=== PATIENT | male | born 1955 | race Caucasian/White ===

== ENCOUNTER 2020-03-02 19:42 | Inpatient (IN) | payer OTHER ==
[2020-03-02] MEDS ORDERED: SODIUM CHLORIDE 1,000 ML IV STA ×2 (19:49→21:28)
[2020-03-02] MEDS ORDERED: FAMOTIDINE 20 MG/50 ML IVPB 20 MG/50 ML MG IVPB ONE ×2 (19:49→21:51)
[2020-03-02] MEDS ORDERED: ACETAMINOPHEN 1000 MG/100 ML VIAL (NON FORMULARY) IVPB ONE (19:49)
--- NOTE | 2020-03-02 19:49 | PDOC ---
Rapid Medical Evaluation Time Seen by Provider: 03/02/20 19:44 Medical Evaluation: Allergies Allergy/AdvReac Type Severity Reaction Status Date / Time No Known Drug Allergies Allergy Verified 08/14/13 13:14 03/02/20 19:44 PT presents for evaluation of RUQ pain for one week. Pt states he didn't take his BP meds today Exam: Hypertensive to 190/100, RUQ tenderness, (+) ackerman's sign Orders: labs, IV insert, defer imaging to provider Pt to proceed to the ER for evaluation Discharge Disposition - Diagnosis Abdominal pain Qualifiers: Abdominal location: right upper quadrant Qualified Code(s): R10.11 - Right upper quadrant pain - Referrals - Patient Instructions - Post Discharge Activity
[2020-03-02] MEDS ORDERED: MAG HYDROX/AL HYDROX/SIMETH 30 ML UNIT-DOSE CUP PO ONE (20:45)
[2020-03-02 20:52] LABS: EOS % 0.6 % (0-4.5); HEMATOCRIT 35.7 % (35.4-49); HEMOGLOBIN 12.3 GM/dL (11.7-16.9); MCH 27.4 pg (25.7-33.7); MCHC 34.5 g/dl (32.0-35.9); MEAN CELL VOLUME 79.4 fl (80-96); MEAN PLT VOLUME 7.9 fl (7.5-11.1); MONO % 7.9 % (3.8-10.2); NEUT % 47.5 % (42.8-82.8); PLATELET COUNT 256 K/MM3 (134-434); RBC 4.49 M/mm3 (4.00-5.60); RDW 14.7 % (11.9-15.9); WHITE BLOOD COUNT 6.6 K/mm3 (4.0-10.0)
--- NOTE | 2020-03-02 20:53 | PDOC ---
History of Present Illness - General Chief Complaint: Pain Stated Complaint: RUQ PAIN Time Seen by Provider: 03/02/20 19:44 - History of Present Illness Initial Comments: 03/02/20 20:56 64 M with HTN, DM presented to the ED for RUQ pain. Pain happened 1 month ago, but getting worse for the past 3 weeks. Today, he came into the ED to get evaluated due to the burning pain. Pain located on the RUQ near the ribcase. Describing it as a burning pain sensation, 8/10 in pain score, not worsening with movement or after food. Denies N/V/fever/chill/chest pain/gallstone hx/shingle vaccine/trauma/falling. PMHX: as in HPI PSHX: see below Meds: BP med Allergies: none Tob: none Etoh: none Rec drugs:none PCP: Amrik ROSSI GENERAL/CONSTITUTIONAL: No fever or chills. No weakness. HEAD, EYES, EARS, NOSE AND THROAT: No change in vision. No ear pain or discharge. No sore throat. CARDIOVASCULAR: No chest pain or shortness of breath RESPIRATORY: No cough, wheezing, or hemoptysis. GASTROINTESTINAL: No nausea, vomiting, diarrhea or constipation. GENITOURINARY: No dysuria, frequency, or change in urination. MUSCULOSKELETAL: RUQ pain. +right rib pain. No neck or back pain. SKIN: No rash NEUROLOGIC: No headache, vertigo, loss of consciousness, or change in strength/sensation. ENDOCRINE: No increased thirst. No abnormal weight change HEMATOLOGIC/LYMPHATIC: No anemia, easy bleeding, or history of blood clots. ALLERGIC/IMMUNOLOGIC: No hives or skin allergy. PE HTN 180/90s. GENERAL: Awake, alert, and fully oriented, in no acute distress HEAD: No signs of trauma, normocephalic, atraumatic EYES: PERRLA, EOMI, sclera anicteric, conjunctiva clear ENT: Auricles normal inspection, hearing grossly normal, nares patent, oropharynx clear without exudates. Moist mucosa NECK: Normal ROM, supple, no lymphadenopathy, JVD, or masses LUNGS: No distress, speaks full sentences, clear to auscultation bilaterally HEART: Regular rate and rhythm, normal S1 and S2, no murmurs, rubs or gallops, peripheral pulses normal and equal bilaterally. ABDOMEN: Soft, RUQ tenderness, +ackerman sign, neg cva tenderness bilat, norm oactive bowel sounds. No guarding, no rebound. No masses. EXTREMITIES : Normal inspection, Normal range of motion, no edema. No clubbing or cyanosis. NEUROLOGICAL: Cranial nerves II through XII grossly intact. Normal speech, normal gait, no focal sensorimotor deficits SKIN: Warm, Dry, normal turgor, no rashes or lesions noted. No rashes noticed on the rib in dermatome distribution. 03/02/20 22:27 03/02/20 23:49 Past History - Medical History Allergies/Adverse Reactions: Allergies Allergy/AdvReac Type Severity Reaction Status Date / Time No Known Drug Allergies Allergy Verified 03/02/20 19:48 Home Medications: Ambulatory Orders Atenolol [Tenormin -] 50 mg PO BID #0 tablet 08/16/13 Lisinopril [Prinivil -] 40 mg PO DAILY #0 tablet 08/16/13 Amlodipine Besylate 5 mg PO DAILY 03/02/20 Losartan Potassium 25 mg PO DAILY 03/02/20 Rosuvastatin Calcium [Crestor] 20 mg PO 03/02/20 Sitagliptin Phosphate [Januvia] 100 mg PO DAILY 03/02/20 metFORMIN HCL [Metformin ER Gastric] 1,000 mg PO BID 03/02/20 COPD: No 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 Audit-10AR): Negative In the last yr the pt used illegal drug/Rx for NonMed reason: No Score: Yes response is considered Positive: 0 Screen Result (Positive result requires Nsg. DAST-10): Negative *Physical Exam - Vital Signs Last Vital Signs Temp Pulse Resp BP Pulse Ox 98.4 F 82 18 189/97 H 98 03/02/20 19:44 03/02/20 19:44 03/02/20 19:44 03/02/20 19:44 03/02/20 19:44 ED Treatment Course - LABORATORY CBC & Chemistry Diagram: 03/02/20 20:15 03/02/20 20:15 - ADDITIONAL ORDERS Additional order review: 03/02/20 20:15 RBC 4.49 MCV 79.4 L MCHC 34.5 RDW 14.7 MPV 7.9 Neutrophils % 47.5 D Lymphocytes % 43.0 H D Monocytes % 7.9 Eosinophils % 0.6 D Basophils % 1.0 Medical Decision Making - Medical Decision Making 03/02/20 21:01 64 M with HTN, DM, presented to the ED with weeks of RUQ pain. ddx: cholelithiasis, cholecystitis, kidney stone, rib fx, duodenal ulcer, shingles. Lab work, UA/UC Chest xray + abdomen/pelvic CT scan with contrast. POCUS gallstones is negative for swelling and stones. Blood work revealed high Lactate 2.3 . Trop 0.09. EKG was done. Flip Twaves 2,3 avF , didn't change much from preveious EKG. sinus rhtym. QTc 419 Not concerning. UA showed elevated WBC, high protein , high leukoesterase. 03/02/20 23:44 BP med :Losartan 25, and Amlopdiin 5 mg. Other med: Offimiv, famnotidine, 2 L of fluid. Repeated Troponin and EKG due to elevated Trop. 03/02/20 23:46 CT scan of the abdomen /pelvic with contrast showed renal cortex cyst 3.5 cm, mild mesenteric Lymph notes, incidental finding which required ortho follow up . 03/02/20 23:54 03/03/20 00:[address] Vides for elevated lactate, and trop . Waiting for the trop and EKG. 03/03/20 00:25 Discharge - Discharge Information Problems reviewed: Yes Clinical Impression/Diagnosis: Elevated troponin, Elevated serum lactate dehydrogenase, Diabetes Abdominal pain Qualifiers: Abdominal location: right upper quadrant Qualified Code(s): R10.11 - Right up per quadrant pain Condition: Good - Admission Yes - Follow up/Referral - Patient Discharge Instructions - Post Discharge Activity
[2020-03-02 21:04] LABS: INR 1.07 (0.83-1.09); PROTHROMBIN TIME (PATIENT) 12.6 SEC (9.7-13.0)
[2020-03-02 21:20] LABS: ALBUMIN 3.6 g/dl (3.4-5.0); BILIRUBIN,TOTAL 0.8 mg/dL (0.2-1); BLOOD UREA NITROGEN 22.9 mg/dL (7-18); CALCIUM 8.9 mg/dL (8.5-10.1); CREATININE 1.5 mg/dL (0.55-1.3); POTASSIUM 3.9 mmol/L (3.5-5.1); TOT PROT 6.9 g/dl (6.4-8.2)
[2020-03-02] MEDS ORDERED: ACETAMINOPHEN INJECTION 100 ML IVPB ONE (21:51)
[2020-03-02] MEDS ORDERED: MAG HYDROX/AL HYDROX/SIMETH 30 ML UNIT-DOSE CUP ONE (21:51)
--- NOTE | 2020-03-02 21:56 | PDOC ---
Attending Attestation - Resident Resident Name: Fernando Hinson - ED Attending Attestation I have performed the following: I have examined & evaluated the patient, The case was reviewed & discussed with the resident, I agree w/resident's findings & plan, Exceptions are as noted - HPI HPI: 03/02/20 21:47 64 yo m h/o htn here with c/o 1 mo of right upper quadrant pain. intermitent, no identifying exacerbation or moderating factors. last few days constant. no association with food. describes as a burning quality. no cp no sob. no rash. feels like the skin is extra sensitive. no trauma. no n/v no f/c no other complaints. - Physicial Exam PE: 03/02/20 21:49 awake alert lungs clear bilat right lower rib, upper quad exquisitely tender to palp, pos guarding. no cva tenderenss. otherwise abd soft nt nd ext wwp. no edema. no calf tenderness. alert oriented x 3. - Medical Decision Making 03/02/20 21:49 64 yo male ruq, right lower rib pain. ttp. differential cholelithiasis, choleycystitis, duod ulcer, pancreatitis, rib injury , pulm infection, plan ekg labs lipase trop cxr eval rib,s nad lungs. focused ED us ruq r/o gb pathology. focused ED us RUQ normal, no stones, no wall thickening, normal cbd neg ackerman's. impression: normal gallbladder. pt labs noted for elevated glucose 350, mild lactic acid 2.3. ct a/p ordered. ekg unchanged from prior with TWI II, III, AVF. NSR 71 bpm trop mildly positive 0.9 03/03/20 00:13 ct with mestenteric lymph node enlargement, noted coronary calcification. pt trop elevated, hgb A1C 10.5. undiagnosed diabetes. given asa 325. will admit to telemetry. Heart Score/ECG Review #1 General ECG Interpretation: Sinus Rhythm, Normal Rate (71), Normal Intervals, No acute ischemic changes (TWI II, III, AVF.) Compared to previous ECG there are: No significant change Discharge - Discharge Information Problems reviewed: Yes Clinical Impression/Diagnosis: Elevated troponin, Elevated serum lactate dehydrogenase, Diabetes Abdominal pain Qualifiers: Abdominal location: right upper quadrant Qualified Code(s): R10.11 - Right upper quadrant pain Condition: Good - Follow up/Referral Referrals: Td Rowley MD [Primary Care Provider] - - Patient Discharge Instructions - Post Discharge Activity
[2020-03-02 22:05] LABS: EPI CELLS 27 /uL (0-25.1); HYALINE CASTS 2 /uL (0-3.1); URINE APPEARANCE CLEAR; URINE BACTERIA 80 /uL (0-1359); URINE BILIRUBIN NEGATIVE (NEGATIVE); URINE COLOR YELLOW; URINE GLUCOSE (UA) 3+ (NEGATIVE); URINE KETONE NEGATIVE (NEGATIVE); URINE LEUK ESTERASE NEGATIVE (NEGATIVE); URINE NITRITE NEGATIVE (NEGATIVE); URINE PROTEIN 2+ (NEGATIVE); URINE RBC 6 /uL (0-23.9); URINE WBC 33 /uL (0-25.8)
[2020-03-02 23:14] LABS: VENOUS BASE EXCESS 0.6 mmol/L (-2-2); VENOUS O2 SATURATION 90.8 % (70-80); VENOUS PCO2 40.8 mmHg (38-52); VENOUS PH 7.41 (7.310-7.410)
[2020-03-02] MEDS ORDERED: amLODIPine BESYLATE 5 MG TABLET (FP) PO ONE (23:43)
[2020-03-02] MEDS ORDERED: LOSARTAN POTASSIUM 25 MG TABLET PO ONE (23:43)
[2020-03-03] MEDS ORDERED: ASPIRIN 81 MG CHEWABLE TABLETS PO ONE (00:13)
--- NOTE | 2020-03-03 00:14 | HP ---
CHIEF COMPLAINT: RUQ burning PCP: Dr. COLBERT ([facility]) HISTORY OF PRESENT ILLNESS: Mr. Tineo is a 64M w a pmhx of HTN, HLD, and type 2 Diabetes reporting to the emergency department for an evaluation of his right sided burning tenderness. The patient reports that the first incident of this burning pain occured one month ago and it has gotten progressively worse as time went on. The patient describes the pain to originate at the R 10th rib mid axilary line and abruptly ends at the midline. The patient rates the pain 8/10, does not get better with any intervention and cannot find an exacerbating trigger. Patient placed on gabapentin for 2 weeks w no relief and has not been able to see his PCP for medi cation management. The patient notes that even his clothing irritates his skin. He has never experienced this in the past. He endorses a history of chicken pox as a child and has never taken the shingles vax. The patient notes receiving back surgery but unsure of the location on the spine for a herniated disk 6 years ago. In the ED the patient received his home medications for antihypertension and an ekg that had inverted t waves in II, III, and avF otherwise unremarkable. Recent Travel: Denies OCCUPATION: works for the [employer] PAST MEDICAL HISTORY: as above PAST SURGICAL HISTORY: Herniated disk intervention, aspiration of his left knee Social History: Smoking: no Alcohol: no Drugs: no Allergies No Known Drug Allergies Allergy (Verified 03/02/20 19:48) HOME MEDICATIONS: Home Medications Medication Instructions Recorded Atenolol [Tenormin -] 50 mg PO BID #0 tablet 08/16/13 Lisinopril [Prinivil -] 40 mg PO DAILY #0 tablet 08/16/13 Amlodipine Besylate 5 mg PO DAILY 03/02/20 Losartan Potassium 25 mg PO DAILY 03/02/20 Rosuvastatin Calcium [Crestor] 20 mg PO 03/02/20 Sitagliptin Phosphate [Januvia] 100 mg PO DAILY 03/02/20 metFORMIN HCL [Metformin ER 1,000 mg PO BID 03/02/20 Gastric] REVIEW OF SYSTEMS CONSTITUTIONAL: Absent: fever, chills, diaphoresis, generalized weakness, malaise, loss of appetite, weight change HEENT: Absent: rhinorrhea, nasal congestion, throat pain, throat swelling, difficulty swallowing, mouth swelling, ear pain, eye pain, visual changes CARDIOVASCULAR: Absent: chest pain, syncope, palpitations, irregular heart rate, lightheadedness, peripheral edema RESPIRATORY: Absent: cough, shortness of breath, dyspnea with exertion, orthopnea, wheezing, stridor, hemoptysis GASTROINTESTINAL:T7 dermatome pattern for burning pain originating at the mid ax ilary line and ending at midline SKIN: Darkening of the right flank compared to the L Absent: rash, itching, pallor ENDOCRINE: Absent: unexplained weight gain, unexplained weight loss, heat intolerance, cold intolerance PHYSICAL EXAMINATION Vital Signs - 24 hr 03/02/20 03/02/20 19:44 23:54 Temperature 98.4 F Pulse Rate 82 Pulse Rate [ 63 Left] Respiratory 18 18 Rate Blood Pressure 189/97 H Blood Pressure 177/91 H [Right Arm] O2 Sat by Pulse 98 97 Oximetry (%) GENERAL: Awake, alert, and fully oriented, in no acute distress. HEAD: Normal with no signs of trauma. LUNGS: Breath sounds equal, clear to auscultation bilaterally. No wheezes, and no crackles. No accessory muscle use. HEART: Regular rate and rhythm, normal S1 and S2 without murmur, rub or gallop. ABDOMEN: T7 dermatome pattern for burning pain originating at the mid axilary line and ending at midline LOWER EXTREMITIES: 2+ pulses, warm, well-perfused. No calf tenderness. No peripheral edema. SKIN: darkening of the right flank in comparison to the L Laboratory Results - last 24 hr 03/02/20 03/02/20 03/02/20 19:49 20:15 20:15 WBC 6.6 RBC 4.49 Hgb 12.3 Hct 35.7 MCV 79.4 L MCH 27.4 MCHC 34.5 RDW 14.7 Plt Count 256 D MPV 7.9 Absolute Neuts (auto) 3.1 Neutrophils % 47.5 D Lymphocytes % 43.0 H D Monocytes % 7.9 Eosinophils % 0.6 D Basophils % 1.0 Nucleated RBC % 0 PT with INR 12.60 INR 1.07 VBG pH POC VBG pCO2 POC VBG pO2 VBG HCO3 VBG O2 Sat (González) VBG Base Excess Sodium Potassium Chloride Carbon Dioxide Anion Gap BUN Creatinine Est GFR (CKD-EPI)AfAm Est GFR (CKD-EPI)NonAf Random Glucose Hemoglobin A1c % Lactic Acid 2.3 H* Calcium Total Bilirubin AST ALT Alkaline Phosphatase Creatine Kinase Creatine Kinase Index CK-MB (CK-2) Troponin I Total Protein Albumin Lipase Urine Color Urine Appearance Urine pH Ur Specific Weldon Urine Protein Urine Glucose (UA) Urine Ketones Urine Blood Urine Nitrite Urine Bilirubin Urine Urobilinogen Ur Leukocyte Esterase Urine WBC (Auto) Urine RBC (Auto) Urine Casts (Auto) U Epithel Cells (Auto) Urine Bacteria (Auto) 03/02/20 03/02/20 03/02/20 20:15 20:15 21:40 WBC RBC Hgb Hct MCV MCH MCHC RDW Plt Count MPV Absolute Neuts (auto) Neutrophils % Lymphocytes % Monocytes % Eosinophils % Basophils % Nucleated RBC % PT with INR INR VBG pH POC VBG pCO2 POC VBG pO2 VBG HCO3 VBG O2 Sat (González) VBG Base Excess Sodium 135 L Potassium 3.9 Chloride 97 L Carbon Dioxide 29 Anion Gap 8 BUN 22.9 H Creatinine 1.5 H Est GFR (CKD-EPI)AfAm 56.61 Est GFR (CKD-EPI)NonAf 48.84 Random Glucose 380 H Hemoglobin A1c % 10.8 H Lactic Acid Calcium 8.9 Total Bilirubin 0.8 AST 38 H ALT 31 Alkaline Phosphatase 81 Creatine Kinase 213 Creatine Kinase Index 1.2 CK-MB (CK-2) 2.7 Troponin I 0.09 H Total Protein 6.9 Albumin 3.6 Lipase 157 Urine Color Yellow Urine Appearance Clear Urine pH 5.0 Ur Specific Weldon 1.032 Urine Protein 2+ H Urine Glucose (UA) 3+ H Urine Ketones Negative Urine Blood Negative Urine Nitrite Negative Urine Bilirubin Negative Urine Urobilinogen 1.0 Ur Leukocyte Esterase Negative Urine WBC (Auto) 33 Urine RBC (Auto) 6 Urine Casts (Auto) 2 U Epithel Cells (Auto) 27 Urine Bacteria (Auto) 80 03/02/20 23:04 WBC RBC Hgb Hct MCV MCH MCHC RDW Plt Count MPV Absolute Neuts (auto) Neutrophils % Lymphocytes % Monocytes % Eosinophils % Basophils % Nucleated RBC % PT with INR INR VBG pH 7.410 POC VBG pCO2 40.8 POC VBG pO2 58.9 H VBG HCO3 25.3 VBG O2 Sat (González) 90.8 H VBG Base Excess 0.6 Sodium Potassium Chloride Carbon Dioxide Anion Gap BUN Creatinine Est GFR (CKD-EPI)AfAm Est GFR (CKD-EPI)NonAf Random Glucose Hemoglobin A1c % Lactic Acid Calcium Total Bilirubin AST ALT Alkaline Phosphatase Creatine Kinase Creatine Kinase Index CK-MB (CK-2) Troponin I Total Protein Albumin Lipase Urine Color Urine Appearance Urine pH Ur Specific Weldon Urine Protein Urine Glucose (UA) Urine Ketones Urine Blood Urine Nitrite Urine Bilirubin Urine Urobilinogen Ur Leukocyte Esterase Urine WBC (Auto) Urine RBC (Auto) Urine Casts (Auto) U Epithel Cells (Auto) Urine Bacteria (Auto) ASSESSMENT/PLAN: Mr. Tineo is a 64M w a pmhx of HTN, HLD, and type 2 Diabetes reporting to the emergency department for an evaluation of his right sided burning tenderness. #RUQ pain - Neuropathic vs anterior cutaneous nerve entrapment vs Diabetic neuropathic pain - Patient has had history of herniated disk repair unsure of location - patient on gabapentin - 2 weeks w no relief - patient responded well to tylenol - consultation for neurology - Dr. Salas - Anterior cutaneous nerve entrapment syndrome is the most common and frequently missed type of abdominal wall pain. 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 - corticosteroids injections to the area used in dx and tx - overall response rate 70-99% #Troponemia - Repeat troponin - Demand ischemia vs rule out asc - patient reports chronically elevated BP #Lactic acidosis likely secondary to metformin use - likely due to metformin home medication - Gentle IVF - Consult nephro #Diabetes type II - ISS - A1C 10.8 - consult endo - holding metformin in the setting of jakub and lactic acidosis - proteinuria - benefit from going back on ARB whenever JAKUB resolves - needs to see podiatry and optho outpatient follow up - recheck BMP for hypokalemia prior to administering insulin #jakub vs jakub on ckd - 2013 Cr was 0.9 - now 1.8 - need to monitor Cr to find baseline - will follow BMP #HTN - hold losartan in the setting of JAKUB - hydralazine in the interim for better blood pressure control - atenolol - amlodipine #HLD - continue home rosuvostatin #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 - New Patient This patient is new to me today: Yes Date on this admission: 03/03/20 - Critical Care Critical Care patient: No ATTENDING PHYSICIAN STATEMENT I saw and evaluated the patient. I reviewed the resident's note and discussed the case with the resident. I agree with the resident's findings and plan as documented. SUBJECTIVE: OBJECTIVE: ASSESSMENT AND PLAN:
--- NOTE | 2020-03-03 00:15 | PN ---
Teaching Attending Note Name of Resident: Fabrice Nelson ATTENDING PHYSICIAN STATEMENT I saw and evaluated the patient. I reviewed the resident's note and discussed the case with the resident. I agree with the resident's findings and plan as documented. SUBJECTIVE: Patient is a 64 year old man with a PMH of HTN, Shingles in childhood, Thoracic herniated disc surgery and NIDDM who presents to the ER for RUQ abdominal pain. Pain happened 1 month ago, but getting worse for the past 3 weeks. Today, he came into the ER to get evaluated due to the burning pain. Pain located on the RUQ near the rib cage. Describing it as a burning pain sensation, 8/10 in pain score, not worsening with movement or after food. Says it hurts even when his sh irt rubs against the skin. Patient denies chest pain, shortness of breath, headache, palpitations, dizziness, fever, chills, nausea, vomiting, diarrhea, constipation, dysuria, frequency, urgency, melena, hematochezia or hematuria. Denies alcohol, tobacco or illicit drug use. No sick contacts or recent travels. Family history of DM in mother, HTN in mother. OBJECTIVE: Alert Vital Signs Period Temp Pulse Resp BP Sys/Lindo Pulse Ox Last 24 Hr 98.4 F 63-82 18-18 177-189/91-97 97-98 HEENT: No Jaundice, eye redness or discharge, PERRLA, EOMI. Normocephalic, atraumatic. External ears are normal and hearing is grossly intact. No nasal discharge. Neck: Supple, nontender. No palpable adenopathy or thyromegaly. No JVD Chest: Good effort. Clear to auscultation and percussion. Heart: Regular. No S3, rub or murmur Abdomen: Not distended, soft, nontender and no HSM. No rebound or guarding. Normal bowel sounds. Ext: Peripheral pulses intact. No leg edema. Skin: Warm and dry. No petechiae, rash or ecchymosis. Neuro: Alert. Oriented x3. CN 2-12 grossly intact. Sensation grossly intact in all four extremities and DTR are symmetric. Psych: Appropriate mood and affect. Good insight. Home Medications Medication Instructions Recorded Atenolol [Tenormin -] 50 mg PO BID #0 tablet 08/16/13 Lisinopril [Prinivil -] 40 mg PO DAILY #0 tablet 08/16/13 Amlodipine Besylate 5 mg PO DAILY 03/02/20 Losartan Potassium 25 mg PO DAILY 03/02/20 Rosuvastatin Calcium [Crestor] 20 mg PO 03/02/20 Sitagliptin Phosphate [Januvia] 100 mg PO DAILY 03/02/20 metFORMIN HCL [Metformin ER 1,000 mg PO BID 03/02/20 Gastric] Abnormal Lab Results 03/02/20 03/02/20 03/02/20 19:49 20:15 20:15 MCV 79.4 L Lymphocytes % 43.0 H D POC VBG pO2 VBG O2 Sat (González) Sodium 135 L Chloride 97 L BUN 22.9 H Creatinine 1.5 H Random Glucose 380 H Hemoglobin A1c % Lactic Acid 2.3 H* AST 38 H Troponin I 0.09 H Urine Protein Urine Glucose (UA) 03/02/20 03/02/20 03/02/20 20:15 21:40 23:04 MCV Lymphocytes % POC VBG pO2 58.9 H VBG O2 Sat (González) 90.8 H Sodium Chloride BUN Creatinine Random Glucose Hemoglobin A1c % 10.8 H Lactic Acid AST Troponin I Urine Protein 2+ H Urine Glucose (UA) 3+ H Current Medications Generic Name Dose Route Start Last Admin Trade Name Freq PRN Reason Stop Dose Admin Amlodipine Besylate 5 mg 03/03/20 10:00 Norvasc - PO DAILY [facility] Atenolol 50 mg 03/03/20 10:00 Tenormin - PO BID [facility] Heparin Sodium (Porcine) 5,000 unit 03/03/20 06:00 Heparin - SQ TID [facility] Sodium Chloride 1,000 mls @ 75 mls/hr 03/03/20 03:00 Normal Saline - IV ASDIR [facility] Insulin Aspart 1 vial 03/03/20 07:00 Novolog Vial Sliding Scale - SQ ACHS [facility] Protocol ASSESSMENT AND PLAN: 1. Abdominal pain/Uncontrolled DM/Troponin elevation - Pain has a dermatomal distribution and may be neuropathic due to nerve entrapment. Has risk factors for ACS. Troponin elevation may be due to decreased clearance. Will treat with topical agents for neuropathy and consult Neurology. EKG shows NSR at 71/minute and QTc 419, T wave inversion in II, III, aVF with no significant acute ischemic ST changes. Not significantly changed compared to prior EKG. Initial troponin is 0.09. No acute abnormality on CXR. CT scan of abdomen/pelvis with IV contrast shows hepatic steatosis, right hip degenerative joint disease and possible chronic left sacroiliitis. Viral testing for COVID-19 ordered and patient placed on airborne, droplet and contact isolation. ER staff prescribed Tylenol, Mylanta, Pepcid, Aspirin 324 mg, Amlodipine, Losartan and IV NS (2 liters) for the patient. Will admit to telemetry, trend troponin, repeat EKG, get ECHO, fasting lipids, trend lactic acid, give IV KCL and then SQ insulin to correct hyperglycemia and continue with IV 1/2 NS. Consult Cardiology. Will hold the home diabetes drugs and implement sliding scale insulin regimen. Provide comprehensive diabetes care with patient teaching and counseling about the importance of adherence to prescribed diabetes regimen, euglycemia, eye care and foot care. Consult endocrine - ptient needs better outpatient diabetes Will continue comprehensive care for all of patients comorbid conditions. 2. CKD with superimposed JAKUB Has proteinuria - ?diabetic nephropathy. JAKUB likely due to dehydration from osmotic diuresis. Will get kidney sonogram, hydrate with 1/2NS, monitor urine output and consult Nephrology. Avoid nephrotoxic agents such as NSAIDS, aminoglycosides, contrast dyes and certain Alternative medicine products. 3. Obesity Counseled on the risks associated with obesity. Will provide patient all the necessary assistance, counseling and positive reinforcement to facilitate weight loss. Consult paste maker. 4. Uncontrolled hypertension Will need to confirm outpatient antihypertensive drugs with PCP and Pharmacy. Not on a diuretic and is on an ACEI and small dose of ARB. Hold ACEI and ARB, continue Amlodipine and Atenolol and use Hydralazine for now to improve BP. Subsequently, will revise regimen to ensure [id number] excellent BP control. Patient counseled on the injurious effects of uncontrolled hypertension. Nonpharmacologic measures to control hypertension like weight loss, salt restriction and exercise stressed. Importance of adherence to treatment regimen and attainment of normotension emphasized. 5. DVT prophylaxis - Heparin 5000u sq tid. 6. Advance directives - Full code
--- OUTSIDE RECORDS SUMMARY | 2020-03-03 00:19 | XMS ---
:1955 Author Organization [facility] Care Team Providers Name Role Phone MD Timoteo Aldana Unavailable Unavailable Katya, MD Ricardo Unavailable Unavailable MD Katya H Unavailable Unavailable MD Katya H Unavailable Unavailable MD Katya H Unavailable Unavailable MD Katya H Unavailable Unavailable Katya, H Unavailable Unavailable Katya, H Unavailable Unavailable Katya, H Unavailable Unavailable Katya, H Unavailable Unavailable Katya, H Unavailable Unavailable Re-disclosure Warning The records that you are about to access may contain information from federally- assisted alcohol or drug abuse programs. If such information is present, then the following federally mandated warning applies: This information has been disclosed to you from records protected by federal confidentiality rules (42 CFR part 2). The federal rules prohibit you from making any further disclosure of this information unless further disclosure is expressly permitted by the written consent of the person to whom it pertains or as otherwise permitted by 42 CFR part 2. A general authorization for the release of medical or other information is NOT sufficient for this purpose. The Federal rules restrict any use of the information to criminally investigate or prosecute any alcohol or drug abuse patient.The records that you are about to access may contain highly sensitive health information, the redisclosure of which is protected by Article 27-F of the [facility] Public Health law. If you continue you may haveaccess to information: Regarding HIV / AIDS; Provided by facilities licensed or operated by the [facility] Office of Mental Health; or Provided by the [facility] Office for People With Developmental Disabilities. If such information is present, then the following [facility] mandated warning applies: This information has been disclosed to you from confidential records which are protected by state law. State law prohibits you from making any further disclosure of this information without the specific written consent of the person to whom it pertains, or as otherwise permitted by law. Any unauthorized further disclosure in violation of state law may result in a fine or retirement sentence or both. A general authorization for the release of medical or other information is NOT sufficient authorization for further disclosure. Encounters Encounter Providers Location Date Indications Data Source(s ) Outpatient Attender: MD [facility] 09/30/2018 n40.1 ID Wilbert Mahmood 07:39:18 AM Jaime Sherwood: MD BLAN[facility] 09/30/2018 Presley: 11:59:59 PM Timoteo Sherwood: MD Timoteo Sherwood: MD Timoteo Sherwood: MD Timoteo Sherwood: MD Timoteo Sherwood: MD Timoteo Faustin: MD Timoteo Aldana n40.1 P Attender: MD Mahmood [facility] 2018 07:52:45 n40 .1 ID Isabella Sherwood: [facility] Timoteo Sherwood: [facility] MD Timoteo Sherwood: MD Timoteo Sherwood: MD Timoteo Sherwood: MD Timoteo Sherwood: MD Timoteo Sherwood: MD Timoteo Faustin: MD Timoteo Aldana n40.1 P Attender: MD Timoteo [facility] 09/25/2018 10:27:36 n40 .1 [facility] Timoteo Sherwood: [facility] MD Timoteo Sherwood: MD Timoteo Sherwood: MD Timoteo Sherwood: MD Timoteo Sherwood: MD Timoteo Sherwood: MD Timoteo Faustin: MD Timoteo Aldana n40.1 Insurance Providers Payer name Policy type / Policy ID Covered Covered libertarian's Policy Plan Coverage type libertarian ID relationship to Self Information self [employer] PPO [id number] SP [id number] 4 [employer] COM [id number] Results ID Date Data Source [id number] 10/17/2019 12:00:00 AM EDT [facility] Name Value Range Interpretation Code Description Data Julieth rce(s) Supporting Document(s ) 2019-nCoV [facility] RNA XXX SHAMIKA+probe- Imp This lab was ordered by [facility] and reported by [employer]. ID Date Data Source [id number] 09/30/2018 10:32:15 AM EDT [facility] [id number] [facility] Name Value Range Interpretation Description Data Source(s ) Supporting Code Document(s ) RADRPT <table border="1" [facility] ethan width="95%"><[facility] up><[facility] width="25%"></col>< col width="25%"></col>< col width="25%"></col>< col width="25%"></col>< /colgroup><tbody><t r><td>Exam Date Time</td><td>Proced ure</td><td>Perform ing Provider</td><td>St atus</td></tr><tr>< td>09/30/18 10:32 AM</td><td>US Renal</td><td>RODERICK T RDMS, DONATA; </td><td>Auth (Verified)</td></tr ></tbody></table><p aragraph>Notes:</pa ragraph><paragraph> (US Renal) Reason For Exam: n40.1</paragraph><p aragraph><content>R eport</content><br/ ><content ID="[id number]">EXAMINATION: Ultrasound renal

HIST ORY: Benign prostatic hypertrophy with outflow obstruction

TECHNIQUE: Real-time sonography of the retroperitoneum was performed.
<br/ >COMPARISON: Ultrasound pelvis same date

FINDI NGS:

The right kidney measures 12.7 cm in craniocaudad dimension, with a
cyst at the upper pole measuring up to 3.7 cm.

The left kidney measures 11.7 cm in craniocaudad dimension, with a
cyst noted in the upper pole measuring 2.7 cm and another in the mid
kidney measuring 1.0 cm

Renal echotexture is within normal limits. Incidental increased
echot exture of the liver suggesting underlying steatosis.

The abdominal aorta is normal in caliber. The common iliac origins are
not well seen due to overlying bowel gas. The IVC is unremarkable.

IMPRESSIO N:
Bilateral renal cysts. Kidneys within normal limits in echotexture. No
evidence of hydronephrosis.<br/ >
Hepatic steatosis. </content>
<con tent> Final

Dict ated: 09/30/2018 11:45 am CONSUELO LIN MD

Signed (Electronic Signature): 09/30/2018 11:45 am
Signed by: CONSUELO LIN MD
Trans cribed by: Technologist: BROOKE </content></paragra ph> ID Date Data Source [id number] 09/30/2018 10:31:49 AM EDT [facility] [id number] [facility] Name Value Range Interpretation Code Description Data Julieth rce(s) Supporting Document(s ) RADRPT <table [facility] border="1" [facility] [place] width="95%"><col Hospital Cent er group><col width="25%"></co l><col width="25%"></co l><col width="25%"></co l><col width="25%"></co l></colgroup><tb thiago><tr><td>Exam Date Time</td><td>Pro cedure</td><td>P erforming Provider</td><td >Status</td></tr ><tr><td>09/30/18 10:32 AM</td><td>US Pelvic Complete</td><td >ROSANNA RDMS, DONATA; </td><td>Auth (Verified)</td>< /tr></tbody></ta ble><paragraph>N otes:</paragraph ><paragraph>(US Pelvic Complete) Reason For Exam: n40.1</paragraph ><paragraph><con tent>Report</con tent>
<anila nt ID="[id number]">Examinati on: Ultrasound pelvic complete

HISTORY: 63-year-old with benign prostatic hypertrophy and outflow
obst ruction, nocturia

Sonographic evaluation of the bladder and prostate are performed
<b r/>COMPARISON: Ultrasound renal same date

Th e bladder is smooth-walled with a volume of 113 cc prevoid and a 22
cc residual. Bilateral ureteral jets are identified.

Prostatic volume is 36 cc. There is a prominent nodular contour of the
prostate upon the trigone.

IMPRESSION:
Small post void residual. Nodular appearing prostate, volumes as
described . </content>
< content> Final

D ictated: 09/30/2018 11:44 am CONSUELO LIN MD
<b r/>Signed (Electronic Signature): 09/30/2018 11:44 am
Signed by: CONSUELO LIN MD
Tr anscribed by: Technologist: BROOKE </content></para graph> Procedure
[2020-03-03] MEDS ORDERED: ASPIRIN COATED 81 MG TABLET.EC ONE (00:23)
[2020-03-03] MEDS ORDERED: amLODIPine BESYLATE 5 MG TABLET (FP) ONE (00:24)
[2020-03-03] MEDS ORDERED: LOSARTAN POTASSIUM 50 MG TABLET ONE (00:24)
[2020-03-03] MEDS ORDERED: hydrALAZINE HCL 25 MG TABLET (FP) PO ONE ×2 (03:02→07:45)
[2020-03-03] MEDS ORDERED: ACETAMINOPHEN 1000 MG/100 ML VIAL (NON FORMULARY) IVPB ONE (03:07)
[2020-03-03 05:32] VITALS: BMI 30.2
[2020-03-03] MEDS ORDERED: PNEUMOC 13-VAL CONJ-DIP CRM/PF 0.5 ML DISP.SYRIN IM ONE (05:32)
[2020-03-03 07:16] LABS: BASO % 0.5 % (0-2.0); EOS % 1.3 % (0-4.5); HEMATOCRIT 35.7 % (35.4-49); HEMOGLOBIN 12.4 GM/dL (11.7-16.9); LYMPH % 48.4 % (8-40); MCH 27.6 pg (25.7-33.7); MCHC 34.7 g/dl (32.0-35.9); MEAN CELL VOLUME 79.5 fl (80-96); MEAN PLT VOLUME 7.6 fl (7.5-11.1); MONO % 8.1 % (3.8-10.2); NEUT % 41.7 % (42.8-82.8); PLATELET COUNT 236 K/MM3 (134-434); RBC 4.49 M/mm3 (4.00-5.60); RDW 15.1 % (11.9-15.9); WHITE BLOOD COUNT 5.8 K/mm3 (4.0-10.0)
[2020-03-03 07:20] LABS: POTASSIUM 3.5 mmol/L (3.5-5.1)
[2020-03-03] MEDS: HEPARIN NA (PORCINE) 5,000 UNITS/ML 1ML VIAL SQ SCH ×3 (07:20→21:12)
[2020-03-03] MEDS: SODIUM CHLORIDE 1,000 ML IV SCH (07:20)
[2020-03-03] MEDS: INSULIN SLIDING SCALE (NOVOLOG) 1 VIAL SQ SCH ×4 (07:23→21:18)
[2020-03-03 07:32] LABS: ALBUMIN 3.6 g/dl (3.4-5.0); BLOOD UREA NITROGEN 16.1 mg/dL (7-18); CALCIUM 8.6 mg/dL (8.5-10.1); CREATININE 1.1 mg/dL (0.55-1.3); MAGNESIUM 1.6 mg/dL (1.8-2.4); PHOSPHOROUS 2.9 mg/dL (2.5-4.9); TOT PROT 6.6 g/dl (6.4-8.2)
[2020-03-03] MEDS: ATENOLOL 50 MG TABLET (FP) PO SCH ×3 (08:57→21:13)
[2020-03-03] MEDS: amLODIPine BESYLATE 5 MG TABLET (FP) PO SCH ×2 (08:58→09:01)
--- NOTE | 2020-03-03 10:18 | EKG ---
Test Reason : Blood Pressure : / mmHG Vent. Rate : 071 BPM Atrial Rate : 071 BPM P-R Int : 168 ms QRS Dur : 090 ms QT Int : 386 ms P-R-T Axes : 048 003 -27 degrees QTc Int : 419 ms NORMAL SINUS RHYTHM NORMAL ECG WHEN COMPARED WITH ECG OF 07-AUG-2013 10:35, NO SIGNIFICANT CHANGE WAS FOUND Confirmed by MD Kumar Edward ([id number]) on 03/03/2020 10:17:49 AM Referred By: Confirmed By:Bharathi Kumar MD
--- NOTE | 2020-03-03 12:55 | EKG ---
Test Reason : Blood Pressure : / mmHG Vent. Rate : 054 BPM Atrial Rate : 054 BPM P-R Int : 184 ms QRS Dur : 098 ms QT Int : 422 ms P-R-T Axes : 021 003 -39 degrees QTc Int : 400 ms SINUS BRADYCARDIA WITH SINUS ARRHYTHMIA OTHERWISE NORMAL ECG WHEN COMPARED WITH ECG OF 02-MAR-2020 21:35, NO SIGNIFICANT CHANGE WAS FOUND Confirmed by MD GENO, KENY ([id number]) on 03/03/2020 12:55:09 PM Referred By: Bishnu LUNA Confirmed By:KENY LORA MD
--- NOTE | 2020-03-03 13:00 | PN ---
Teaching Attending Note Name of Resident: Scott Garces ATTENDING PHYSICIAN STATEMENT I saw and evaluated the patient. I reviewed the resident's note and discussed the case with the resident. I agree with the resident's findings and plan as documented. SUBJECTIVE: Seen and examined at bedside. Patient reports pain is burning in the right uppe r quadrant of his abdomen and is very sensitive to light touch. Patient also noted to have uptrending troponin, A1c of 10.8. Creatinine and lactic acid have improved. Cardiology to bensulted OBJECTIVE Last Vital Signs Temp Pulse Resp BP Pulse Ox 98.0 F 68 18 164/98 100 03/03/20 10:00 03/03/20 11:28 03/03/20 10:00 03/03/20 11:28 03/03/20 10:00 PE: Per resident note Labs/Imaging: reviewed ASSESSMENT/PLAN 61-year-old male with a history of hypertension, hyperlipidemia, type 2 diabetes presented with several weeks of burning right upper quadrant pain. Found to have JAKUB, elevated troponin, elevated lactic acid. #Right upper quadrant pain Appears to be neuropathic in quality. 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
[2020-03-03] MEDS ORDERED: LOSARTAN POTASSIUM 50 MG TABLET PO ONE (13:45)
--- NOTE | 2020-03-03 14:17 | CON.CARD ---
Consult Consult Specialty:: cardiology Reason for Consultation:: cardiac arrhythmia; elevated TNi - History of Present Illness Chief Complaint: Pt A&OX3; asymptomatic except ongoing burning mild-moderate pain along lower right ribcage History of Present Illness: Mr. Tineo is a 64 yr old white man with HTN, DM (diagnosed 2016), obesity, who presented to the ED for RUQ pain. Pain happened 1 month ago, but getting worse for the past 3 weeks. Today, he came into the ED to get evaluated due to the burning pain. Pain located on the RUQ near the ribcage. Describing it as a burning pain sensation, 8/10 in pain score, not worsening with movement or after food. Denies N/V/fever/chill/chest pain/gallstone hx/shingle vaccine/trauma/falling. Called because pt was noted to be in a wide-complex arrhythmia. Family hx; father had Mi in his 50s; in his 60s Mother: DM; in her 70s. Both parents smoked; pt was exposed to 2nd hand smoke growing up. Denies alcohol. 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 Denies leg swelling. - History Source History Provided By: Patient, Medical Record Limitations to Obtaining History: No Limitations - Past Medical History Cardio/Vascular: Yes: HTN - Alcohol/Substance Use Hx Alcohol Use: No - Smoking History Smoking history: Never smoked Have you smoked in the past 12 months: No Home Medications - Allergies Allergies/Adverse Reactions: Allergies Allergy/AdvReac Type Severity Reaction Status Date / Time No Known Drug Allergies Allergy Verified 03/02/20 19:48 - Home Medications Home Medications: Ambulatory Orders Atenolol [Tenormin -] 50 mg PO BID #0 tablet 08/16/13 Lisinopril [Prinivil -] 40 mg PO DAILY #0 tablet 08/16/13 Amlodipine Besylate 5 mg PO DAILY 03/02/20 Losartan Potassium 25 mg PO DAILY 03/02/20 Rosuvastatin Calcium [Crestor] 20 mg PO 03/02/20 Sitagliptin Phosphate [Januvia] 100 mg PO DAILY 03/02/20 metFORMIN HCL [Metformin ER Gastric] 1,000 mg PO BID 03/02/20 Amlodipine Besylate 1 tab PO DAILY 03/03/20 Gabapentin 2 cap PO DAILY 03/03/20 Rosuvastatin Calcium [Crestor] 40 cap PO DAILY 03/03/20 Family Medical History Family History: Denies Review of Systems - Review of Systems Constitutional: reports: No Symptoms Eyes: reports: No Symptoms HENT: reports: No Symptoms Neck: reports: No Symptoms Cardiovascular: reports: No Symptoms Gastrointestinal: reports: No Symptoms Genitourinary: reports: No Symptoms Breasts: reports: No Symptoms Reported Musculoskeletal: reports: Other (right rib pain) Integumentary: reports: Other (see above). denies: Rash Neurological: reports: No Symptoms Endocrine: reports: No Symptoms Hematology/Lymphatic: reports: No Symptoms Psychiatric: reports: Anxiety - Risk Factors Known Risk Factors: Yes: Age, Diabetes Mellitus, Family History, Gender, Hypercholesterolemia, Hypertension, Smoking (2nd-hand smoke (remote: while a child)) Vital Signs: Vital Signs Temperature 98.0 F 03/03/20 10:00 Pulse Rate 65 03/03/20 13:08 Respiratory Rate 18 03/03/20 10:00 Blood Pressure 159/82 03/03/20 13:08 O2 Sat by Pulse Oximetry (%) 100 03/03/20 10:00 Constitutional: Yes: Calm, Obese Eyes: Yes: WNL HENT: Yes: WNL Neck: No: WNL Gastrointestinal: Yes: WNL Renal/: No: Anuria Cardiovascular: Yes: Regular Rate and Rhythm JVD: No Carotid Bruit: No PMI: Non-Displaced Heart Sounds: Yes: S1, S2, S4 Murmur: Yes: Systolic Murmur Musculoskeletal: Yes: Other (burning pain right lower rib cage; increased with palpation) Edema: No Peripheral Pulses WNL: Yes Integumentary: Yes: WNL Neurological: Yes: WNL ...Motor Strength: WNL Psychiatric: Yes: WNL - Other Data Labs, Other Data: CBC, BMP 03/03/20 06:18 03/03/20 06:18 INR, PTT INR 1.07 (0.83-1.09) 03/02/20 20:15 Troponin, BNP 03/02/20 03/03/20 03/03/20 20:15 00:18 06:18 Troponin I 0.09 H 0.10 H 0.11 H 03/03/20 12:34 Troponin I 0.11 H Troponin, BNP 0903/03/20 03/03/20 20:15 00:18 06:18 Troponin I 0.09 H 0.10 H 0.11 H 03/03/20 12:34 Troponin I 0.11 H Abnormal Lab Results 03/05/20 03/05/20 06:31 06:31 MCV 79.6 L MPV 7.4 L Sodium 135 L BUN 19.3 H Random Glucose 223 H Magnesium 1.5 L Imaging - Results Chest X-ray: Image Reviewed EKG: Image Reviewed Other: Image Reviewed (telemetry: NSVT) Assessment/Plan NSVT mildly elevated TNi: multiple CAD risks; demand ischemic contributors, including arrhythmia, uncontrolled HTN, CHF. DM with high HGBA1c. HTN obesity family hx CAD exposure to 2nd hand cigarette smoke hypokalemia; hypomagnesemia. Hx coronary angiogram at [place] about [address]: On atenolol; increase dose, and modify other antihypertensive dosages as required for better BP control. Replete K and Mg; keep K 4.0-4.5, Mg 2.0-2.4, PO4 2.5-4.9. ECHO for LVEF, chamber sizes, valve status, wall motion and thicknesses. Statin, even if lipid panel is "normal". f/u prior cardiac workup; obtain coronary angiogram results (pt does not believe he had a stent placed). If not done recently, evaluation of coronary arteries (e.g., stress MIBI) will be needed. Nutrition consult would be of benefit.
[2020-03-03] MEDS ORDERED: POTASSIUM CHLORIDE TABS 20 MEQ TABLET.ER (FP) PO ONE (14:19)
[2020-03-03] MEDS ORDERED: MAGNESIUM OXIDE 400 MG TABLET (FP) PO ONE (14:20)
[2020-03-03] MEDS ORDERED: ATENOLOL 25 MG TABLET (FP) PO ONE (14:58)
--- NOTE | 2020-03-03 16:15 | CON.NEURO ---
Consult - Past Medical History Cardio/Vascular: Yes: HTN - Alcohol/Substance Use Hx Alcohol Use: No - Smoking History Smoking history: Never smoked Have you smoked in the past 12 months: No Home Medications - Allergies Allergies/Adverse Reactions: Allergies Allergy/AdvReac Type Severity Reaction Status Date / Time No Known Drug Allergies Allergy Verified 03/02/20 19:48 - Home Medications Home Medications: Ambulatory Orders Atenolol [Tenormin -] 50 mg PO BID #0 tablet 08/16/13 Lisinopril [Prinivil -] 40 mg PO DAILY #0 tablet 08/16/13 Amlodipine Besylate 5 mg PO DAILY 03/02/20 Losartan Potassium 25 mg PO DAILY 03/02/20 Rosuvastatin Calcium [Crestor] 20 mg PO 03/02/20 Sitagliptin Phosphate [Januvia] 100 mg PO DAILY 03/02/20 metFORMIN HCL [Metformin ER Gastric] 1,000 mg PO BID 03/02/20 Amlodipine Besylate 1 tab PO DAILY 03/03/20 Gabapentin 2 cap PO DAILY 03/03/20 Rosuvastatin Calcium [Crestor] 40 cap PO DAILY 03/03/20 Physical Exam-Neuro Vital Signs: Vital Signs Temperature 97.8 F 03/03/20 14:00 Pulse Rate 66 03/03/20 14:33 Respiratory Rate 18 03/03/20 10:00 Blood Pressure 155/94 03/03/20 14:33 O2 Sat by Pulse Oximetry (%) 99 03/03/20 14:00 Labs: CBC, BMP 03/03/20 06:18 03/03/20 06:18 INR, PTT INR 1.07 (0.83-1.09) 03/02/20 20:15 Assessment/Plan CC Right flank pain HPI 64 Year old male history of htn, hld, dm, has been having right flank burning sensation, along with burning of both feet. Patient has been diagnosed with DM and has poorly controlled dm. Patient is on gabapnetin and not helping his flank symptoms. Patient denies any abck pain, or rash or any history of rash. He denies any other focal neurological symptoms. Ct abdomen done was inconc lusive. He is being worked up for [place]. OCCUPATION: works for the [employer] PAST MEDICAL HISTORY: as above PAST SURGICAL HISTORY: Herniated disk intervention, aspiration of his left knee Social History: Smoking: no Alcohol: no Drugs: no Allergies No Known Drug Allergies Allergy (Verified 03/02/20 19:48) HOME MEDICATIONS: Home Medications Medication Instructions Recorded Atenolol [Tenormin -] 50 mg PO BID #0 tablet 08/16/13 Lisinopril [Prinivil -] 40 mg PO DAILY #0 tablet 08/16/13 Amlodipine Besylate 5 mg PO DAILY 03/02/20 Losartan Potassium 25 mg PO DAILY 03/02/20 Rosuvastatin Calcium [Crestor] 20 mg PO 03/02/20 Sitagliptin Phosphate [Januvia] 100 mg PO DAILY 03/02/20 metFORMIN HCL [Metformin ER 1,000 mg PO BID 03/02/20 Gastric] ROS,FHS,SH reviewed in chart NEUROLOGICAL EXAMINATION Alert oriented x 3, neck is supple vss , afebrile eomi, pupils reactive no face asymmetry there is sensory dysthesia in two dermitome between t9-t11 Assessment/plan 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
--- NOTE | 2020-03-03 18:19 | ECHO ---
Version: 1 Name: STONE BULL Exam: Adult Echocardiogram Study Date: 03/03/2020, 2:56 PM Age: 64 Years MMode/2D Measurements & Calculations IVSd: 1.18 cm LVIDd: 3.8 cm LVPWd: 1.53 cm LAV (MOD-bp): 87.0 ml LVOT diam: 2.46 cm Ao root diam: 3.6 cm LA dimension: 3.2 cm Doppler Measurements & Calculations MV E max james: 85.4 cm/sec Med E/e': 15.9 MV A max james: 117.5 cm/sec Med Peak E' James: 5.4 cm/sec MV E/A: 0.73 Lat E/e': 13.4 Lat Peak E' James: 6.4 cm/sec Ao max P.9 mmHg Ao V2 max: 157.1 cm/sec PI end-d james: 93.7 cm/sec TR max james: 191.4 cm/sec TR max P.7 mmHg Procedure A two-dimensional transthoracic echocardiogram with color flow and Doppler was performed. The patien t was in atrial fibrillation with controlled ventricular rate during the exam. Left Ventricle Left ventricular systolic function is mildly reduced. Ejection Fraction = 45%. E/A reversal consiste nt with but not diagnostic of poor LV compliance. Right Ventricle The right ventricle is normal in size and function. Atria Normal left and right atrial size and function. Mitral Valve There is moderate mitral annular calcification. There is no mitral regurgitation noted. Tricuspid Valve The tricuspid valve is normal. There is trace tricuspid regurgitation. There was insufficient TR det ected to calculate RV systolic pressure. Aortic Valve Fibrocalcific aortic valve without significant stenosis. The aortic valve is trileaflet. Trace aorti c regurgitation. Pulmonic Valve The pulmonic valve is not well seen, but is grossly normal. There is no pulmonic valvular regurgitat ion. Great Vessels The aortic root is normal size. Mildly dilated ascending aorta. Pericardium/Pleura There is no pericardial effusion. Summary Statements Left ventricular systolic function is mildly reduced. Ejection Fraction = 45%. E/A reversal consistent with but not diagnostic of poor LV compliance The right ventricle is normal in size and function. There is moderate mitral annular calcification. There is trace tricuspid regurgitation. Fibrocalcific aortic valve without significant stenosis. Trace aortic regurgitation. Mildly dilated ascending aorta. There is no pericardial effusion. MD Artur Carreno 03/03/2020, 6:18 PM Ordering Physician: Ankush Garza Referring Physician: ANDIE GARZA Performed By: Flora Magallon
--- NOTE | 2020-03-03 19:18 | PN ---
Physical Exam: SUBJECTIVE: Patient seen and examined at bedside. Endorses right sided superficial abdominal pain. Denies chest pain or shortness of breath. OBJECTIVE: Vital Signs Period Temp Pulse Resp BP Sys/Lindo Pulse Ox Last 24 Hr 97.6 F-98.4 F 52-94 18-20 155-198/76-104 97-100 GENERAL: NAD HEAD: Normal with no signs of trauma. EYES: EOMI Sclera Clear ENT:MMM NECK: Supple LUNGS: Clear b/l. No MRG S1S2 HEART: RRR No MRG S1S2 ABDOMEN: Soft, nontender, nondistender. BS+. No rashes or masses appreciated. EXTREMITIES: 2+ pulses, warm, well-perfused, no edema. NEUROLOGICAL: Cranial nerves II through XII grossly intact. PSYCH: Normal mood, normal affect. SKIN: Warm, dry, normal turgor, no rashes or lesions noted Laboratory Results - last 24 hr 03/02/20 03/02/20 03/02/20 19:49 20:15 20:15 WBC 6.6 RBC 4.49 Hgb 12.3 Hct 35.7 MCV 79.4 L MCH 27.4 MCHC 34.5 RDW 14.7 Plt Count 256 D MPV 7.9 Absolute Neuts (auto) 3.1 Neutrophils % 47.5 D Lymphocytes % 43.0 H D Monocytes % 7.9 Eosinophils % 0.6 D Basophils % 1.0 Nucleated RBC % 0 PT with INR 12.60 INR 1.07 VBG pH POC VBG pCO2 POC VBG pO2 VBG HCO3 VBG O2 Sat (González) VBG Base Excess Sodium Potassium Chloride Carbon Dioxide Anion Gap BUN Creatinine Est GFR (CKD-EPI)AfAm Est GFR (CKD-EPI)NonAf POC Glucometer Random Glucose Hemoglobin A1c % Lactic Acid 2.3 H* Calcium Phosphorus Magnesium Total Bilirubin AST ALT Alkaline Phosphatase Creatine Kinase Creatine Kinase Index CK-MB (CK-2) Troponin I Total Protein Albumin Triglycerides Cholesterol Total LDL Cholesterol HDL Cholesterol Lipase TSH Urine Color Urine Appearance Urine pH Ur Specific [place] Urine Protein Urine Glucose (UA) Urine Ketones Urine Blood Urine Nitrite Urine Bilirubin Urine Urobilinogen Ur Leukocyte Esterase Urine WBC (Auto) Urine RBC (Auto) Urine Casts (Auto) U Epithel Cells (Auto) Urine Bacteria (Auto) 03/02/20 03/02/20 03/02/20 20:15 20:15 21:40 WBC RBC Hgb Hct MCV MCH MCHC RDW Plt Count MPV Absolute Neuts (auto) Neutrophils % Lymphocytes % Monocytes % Eosinophils % Basophils % Nucleated RBC % PT with INR INR VBG pH POC VBG pCO2 POC VBG pO2 VBG HCO3 VBG O2 Sat (González) VBG Base Excess Sodium 135 L Potassium 3.9 Chloride 97 L Carbon Dioxide 29 Anion Gap 8 BUN 22.9 H Creatinine 1.5 H Est GFR (CKD-EPI)AfAm 56.61 Est GFR (CKD-EPI)NonAf 48.84 POC Glucometer Random Glucose 380 H Hemoglobin A1c % 10.8 H Lactic Acid Calcium 8.9 Phosphorus Magnesium Total Bilirubin 0.8 AST 38 H ALT 31 Alkaline Phosphatase 81 Creatine Kinase 213 Creatine Kinase Index 1.2 CK-MB (CK-2) 2.7 Troponin I 0.09 H Total Protein 6.9 Albumin 3.6 Triglycerides Cholesterol Total LDL Cholesterol HDL Cholesterol Lipase 157 TSH Urine Color Yellow Urine Appearance Clear Urine pH 5.0 Ur Specific [place] 1.032 Urine Protein 2+ H Urine Glucose (UA) 3+ H Urine Ketones Negative Urine Blood Negative Urine Nitrite Negative Urine Bilirubin Negative Urine Urobilinogen 1.0 Ur Leukocyte Esterase Negative Urine WBC (Auto) 33 Urine RBC (Auto) 6 Urine Casts (Auto) 2 U Epithel Cells (Auto) 27 Urine Bacteria (Auto) 80 03/02/20 03/03/20 03/03/20 23:04 00:18 00:18 WBC RBC Hgb Hct MCV MCH MCHC RDW Plt Count MPV Absolute Neuts (auto) Neutrophils % Lymphocytes % Monocytes % Eosinophils % Basophils % Nucleated RBC % PT with INR INR VBG pH 7.410 POC VBG pCO2 40.8 POC VBG pO2 58.9 H VBG HCO3 25.3 VBG O2 Sat (González) 90.8 H VBG Base Excess 0.6 Sodium Potassium Chloride Carbon Dioxide Anion Gap BUN Creatinine Est GFR (CKD-EPI)AfAm Est GFR (CKD-EPI)NonAf POC Glucometer Random Glucose Hemoglobin A1c % Lactic Acid 1.5 Calcium Phosphorus Magnesium Total Bilirubin AST ALT Alkaline Phosphatase Creatine Kinase Creatine Kinase Index CK-MB (CK-2) Troponin I 0.10 H Total Protein Albumin Triglycerides Cholesterol Total LDL Cholesterol HDL Cholesterol Lipase TSH Urine Color Urine Appearance Urine pH Ur Specific [place] Urine Protein Urine Glucose (UA) Urine Ketones Urine Blood Urine Nitrite Urine Bilirubin Urine Urobilinogen Ur Leukocyte Esterase Urine WBC (Auto) Urine RBC (Auto) Urine Casts (Auto) U Epithel Cells (Auto) Urine Bacteria (Auto) 03/03/20 03/03/20 03/03/20 06:18 06:18 07:21 WBC 5.8 RBC 4.49 Hgb 12.4 Hct 35.7 MCV 79.5 L MCH 27.6 MCHC 34.7 RDW 15.1 Plt Count 236 MPV 7.6 Absolute Neuts (auto) 2.4 Neutrophils % 41.7 L Lymphocytes % 48.4 H Monocytes % 8.1 Eosinophils % 1.3 D Basophils % 0.5 Nucleated RBC % 0 PT with INR INR VBG pH POC VBG pCO2 POC VBG pO2 VBG HCO3 VBG O2 Sat (González) VBG Base Excess Sodium 136 Potassium 3.5 Chloride 99 Carbon Dioxide 32 Anion Gap 5 L BUN 16.1 Creatinine 1.1 Est GFR (CKD-EPI)AfAm 82.37 Est GFR (CKD-EPI)NonAf 71.07 POC Glucometer 240 Random Glucose 245 H Hemoglobin A1c % Lactic Acid Calcium 8.6 Phosphorus 2.9 Magnesium 1.6 L Total Bilirubin 1.0 AST 19 ALT 31 Alkaline Phosphatase 79 Creatine Kinase Creatine Kinase Index CK-MB (CK-2) Troponin I 0.11 H Total Protein 6.6 Albumin 3.6 Triglycerides 356 H Cholesterol 200 Total LDL Cholesterol 112 H HDL Cholesterol 32 L Lipase TSH 1.84 Urine Color Urine Appearance Urine pH Ur Specific [place] Urine Protein Urine Glucose (UA) Urine Ketones Urine Blood Urine Nitrite Urine Bilirubin Urine Urobilinogen Ur Leukocyte Esterase Urine WBC (Auto) Urine RBC (Auto) Urine Casts (Auto) U Epithel Cells (Auto) Urine Bacteria (Auto) 03/03/20 03/03/20 03/03/20 11:33 12:34 17:24 WBC RBC Hgb Hct MCV MCH MCHC RDW Plt Count MPV Absolute Neuts (auto) Neutrophils % Lymphocytes % Monocytes % Eosinophils % Basophils % Nucleated RBC % PT with INR INR VBG pH POC VBG pCO2 POC VBG pO2 VBG HCO3 VBG O2 Sat (González) VBG Base Excess Sodium Potassium Chloride Carbon Dioxide Anion Gap BUN Creatinine Est GFR (CKD-EPI)AfAm Est GFR (CKD-EPI)NonAf POC Glucometer 204 236 Random Glucose Hemoglobin A1c % Lactic Acid Calcium Phosphorus Magnesium Total Bilirubin AST ALT Alkaline Phosphatase Creatine Kinase Creatine Kinase Index CK-MB (CK-2) Troponin I 0.11 H Total Protein Albumin Triglycerides Cholesterol Total LDL Cholesterol HDL Cholesterol Lipase TSH Urine Color Urine Appearance Urine pH Ur Specific [place] Urine Protein Urine Glucose (UA) Urine Ketones Urine Blood Urine Nitrite Urine Bilirubin Urine Urobilinogen Ur Leukocyte Esterase Urine WBC (Auto) Urine RBC (Auto) Urine Casts (Auto) U Epithel Cells (Auto) Urine Bacteria (Auto) Active Medications Generic Name Dose Route Start Last Admin Trade Name Ce PRN Reason Stop Dose Admin Amlodipine Besylate 5 mg 03/03/20 10:00 03/03/20 09:01 Norvasc - PO Not Given DAILY [facility] Atenolol 75 mg 03/03/20 14:57 Tenormin - PO BID [facility] Heparin Sodium (Porcine) 5,000 unit 03/03/20 06:00 03/03/20 13:16 Heparin - SQ 5,000 unit TID NADIA Administration Sodium Chloride 1,000 mls @ 75 mls/hr 03/03/20 03:00 03/03/20 07:20 Normal Saline - IV 03/04/20 16:19 75 mls/hr ASDIR NADIA Administration Influenza Virus Vaccine 60 mcg 03/03/20 05:32 Flulaval Quad 0023-9034 Syr IM 03/03/20 05:33 .ONCE ONE Insulin Aspart 1 vial 03/03/20 07:00 03/03/20 17:31 Novolog Vial Sliding Scale - SQ 4 units ACHS NADIA Administration Protocol Insulin Detemir 4 units 03/03/20 22:00 Levemir Vial SQ BID@0700,2200 [facility] Losartan Potassium 75 mg 03/04/20 10:00 Cozaar - PO DAILY [facility] Pneumococcal 13-Valent Conj Vacc 0.5 ml 03/03/20 05:32 Prevnar 13 Syringe - IM 03/03/20 05:33 .ONCE ONE ASSESSMENT/PLAN: Patient is a 64 year old man with a PMH of HTN, Shingles in childhood, Thoracic herniated disc surgery and NIDDM who presents to the ER for RUQ abdominal pain. Found to have an JAKUB, Tropenemia, and latic acidosis. #RUQ abdominal pain unclear etiology -Patient states his pain has been present for weeks. Cannot attribute pain to any inciting factors. -Pain located right side, very painful to superficial touch. Herpes Zoster on differential (has never had shingles vaccine). Also ddx includes anterior cutaneous nerve entrapment. -Neuro on board. Recommending topical capsaicin cream. Will defer Lidocaine patch in light of possible MT. -CTAP performed upon admission. No acute pathology. Enlarged mesentreric lymph nodes, sacroiliitis. Ortho consult and MRI suggested. #Tropenemia likely 2/2 demand -No EKG changes. May be 2/2 uncontrolled HTN. Troponin 0.11. c/t trend. Echocardiogram---> Mixed Diastolic/Systolic HD. Poor LV compliance/ poor LV relaxation. #Diabetes Mellitus -A1C 10.7. -Started in Insulin while admitted. Counseled on health ramifications of uncontrolled diabetes including but not limnited to stroke, heart disease, and lung disease. -Endo has been consulted. Recs appreciated #Acute Kidney Injury -Cr upon admission---> 1.5. Currently 1.1. C/t trend. May be 2/2 medication mismanagement, i.e patient endorsing he is taking both lisinopril and losartan #HTN -Lisinopril d/c'ed. -Losartan 75 daily, Atenolol, Hydralazine. #FEN NS@75cc Monitor Electrolytes Sodium Controlled/Diabetic #DVT ppx: HepSQTID #Dispo: Tele Visit type - Emergency Visit Emergency Visit: Yes ED Registration Date: 03/02/20 Care time: The patient presented to the Emergency Department on the above date and was hospitalized for further evaluation of their emergent condition. - New Patient This patient is new to me today: Yes Date on this admission: 03/03/20 - Critical Care Critical Care patient: No - Discharge Referral Referred to [facility] No ATTENDING PHYSICIAN STATEMENT I saw and evaluated the patient. I reviewed the resident's note and discussed the case with the resident. I agree with the resident's findings and plan as documented. SUBJECTIVE: OBJECTIVE: ASSESSMENT AND PLAN:
[2020-03-03] MEDS ORDERED: ACETAMINOPHEN 1000 MG/100 ML VIAL (NON FORMULARY) IVPB PRN (20:11)
[2020-03-03] MEDS ORDERED: INSULIN (LEVEMIR) 100 UNITS/ML UNITS SQ SCH (22:00)
--- NOTE | 2020-03-03 23:30 | CONSULT ---
Consult Consult Specialty:: Endocrine Referred by:: Piper Bronson Reason for Consultation:: DMT2 uncontrolled Neuropathy - History of Present Illness Chief Complaint: high sugar and chest wall pain History of Present Illness: 64 year old man with a PMH of T2DM,(on oral agents)Back pain sp Thoracic disc surgery,HTN, Shingles presented to the ER for RUQ abdominal pain. Pain happened 1 month ago, but getting worse for the past 3 weeks. States pain is burning and feels like a hot iron on chest difficulty taking a deep breath,no cough or fever nausea or vomiting.He admitts high sugars inpast and very compliant with diet. - Past Medical History Cardio/Vascular: Yes: HTN - Alcohol/Substance Use Hx Alcohol Use: No - Smoking History Smoking history: Never smoked Have you smoked in the past 12 months: No Home Medications - Allergies Allergies/Adverse Reactions: Allergies Allergy/AdvReac Type Severity Reaction Status Date / Time No Known Drug Allergies Allergy Verified 03/02/20 19:48 - Home Medications Home Medications: Ambulatory Orders Atenolol [Tenormin -] 50 mg PO BID #0 tablet 08/16/13 Lisinopril [Prinivil -] 40 mg PO DAILY #0 tablet 08/16/13 Amlodipine Besylate 5 mg PO DAILY 03/02/20 Losartan Potassium 25 mg PO DAILY 03/02/20 Rosuvastatin Calcium [Crestor] 20 mg PO 03/02/20 Sitagliptin Phosphate [Januvia] 100 mg PO DAILY 03/02/20 metFORMIN HCL [Metformin ER Gastric] 1,000 mg PO BID 03/02/20 Amlodipine Besylate 1 tab PO DAILY 03/03/20 Gabapentin 2 cap PO DAILY 03/03/20 Rosuvastatin Calcium [Crestor] 40 cap PO DAILY 03/03/20 Review of Systems - Review of Systems Constitutional: reports: Lethargy Eyes: reports: No Symptoms HENT: reports: No Symptoms Neck: reports: No Symptoms Cardiovascular: reports: Shortness of Breath Respiratory: reports: Exercise Intolerance, SOB Gastrointestinal: reports: No Symptoms Genitourinary: reports: No Symptoms Integumentary: reports: Eczema, Pruritis, Rash Neurological: reports: Numbness, Weakness Physical Exam Vital Signs: Vital Signs Temperature 97.8 F 03/03/20 22:00 Pulse Rate 62 03/03/20 22:00 Respiratory Rate 18 03/03/20 22:00 Blood Pressure 163/82 03/03/20 22:00 O2 Sat by Pulse Oximetry (%) 96 03/03/20 22:00 Labs: CBC, BMP 03/03/20 06:18 03/03/20 06:18 Problem List - Problems (1) Controlled diabetes mellitus with hyperglycemia Problems reviewed: Yes Code(s): E11.65 - TYPE 2 DIABETES MELLITUS WITH HYPERGLYCEMIA (2) Abdominal pain Problems reviewed: Yes Code(s): R10.9 - UNSPECIFIED ABDOMINAL PAIN Qualifiers: Abdominal location: right upper quadrant Qualified Code(s): R10.11 - Right upper quadrant pain (3) Elevated serum lactate dehydrogenase Code(s): R74.0 - NONSPEC ELEV OF LEVELS OF TRANSAMNS & LACTIC ACID DEHYDRGNSE (4) Elevated troponin Code(s): R79.89 - OTHER SPECIFIED ABNORMAL FINDINGS OF BLOOD CHEMISTRY Assessment/Plan Current Active Problems Uncontrolled DMt2,neuropathy hyperglycemia Abdominal pain (Acute) Elevated serum lactate dehydrogenase (Acute) Elevated troponin (Acute) Abnormal Lab Results 03/03/20 03/03/20 03/03/20 00:18 06:18 06:18 MCV 79.5 L Neutrophils % 41.7 L Lymphocytes % 48.4 H Anion Gap 5 L Random Glucose 245 H Magnesium 1.6 L Troponin I 0.10 H 0.11 H Triglycerides 356 H Total LDL Cholesterol 112 H HDL Cholesterol 32 L 03/03/20 03/03/20 12:34 21:20 MCV Neutrophils % Lymphocytes % Anion Gap Random Glucose Magnesium Troponin I 0.11 H 0.10 H Triglycerides Total LDL Cholesterol HDL Cholesterol Laboratory Results - last 24 hr 03/03/20 03/03/20 03/03/20 00:18 00:18 06:18 WBC RBC Hgb Hct MCV MCH MCHC RDW Plt Count MPV Absolute Neuts (auto) Neutrophils % Lymphocytes % Monocytes % Eosinophils % Basophils % Nucleated RBC % Sodium 136 Potassium 3.5 Chloride 99 Carbon Dioxide 32 Anion Gap 5 L BUN 16.1 Creatinine 1.1 Est GFR (CKD-EPI)AfAm 82.37 Est GFR (CKD-EPI)NonAf 71.07 POC Glucometer Random Glucose 245 H Lactic Acid 1.5 Calcium 8.6 Phosphorus 2.9 Magnesium 1.6 L Total Bilirubin 1.0 AST 19 ALT 31 Alkaline Phosphatase 79 Troponin I 0.10 H 0.11 H Total Protein 6.6 Albumin 3.6 Triglycerides 356 H Cholesterol 200 Total LDL Cholesterol 112 H HDL Cholesterol 32 L TSH 1.84 03/03/20 03/03/20 03/03/20 06:18 07:21 11:33 WBC 5.8 RBC 4.49 Hgb 12.4 Hct 35.7 MCV 79.5 L MCH 27.6 MCHC 34.7 RDW 15.1 Plt Count 236 MPV 7.6 Absolute Neuts (auto) 2.4 Neutrophils % 41.7 L Lymphocytes % 48.4 H Monocytes % 8.1 Eosinophils % 1.3 D Basophils % 0.5 Nucleated RBC % 0 Sodium Potassium Chloride Carbon Dioxide Anion Gap BUN Creatinine Est GFR (CKD-EPI)AfAm Est GFR (CKD-EPI)NonAf POC Glucometer 240 204 Random Glucose Lactic Acid Calcium Phosphorus Magnesium Total Bilirubin AST ALT Alkaline Phosphatase Troponin I Total Protein Albumin Triglycerides Cholesterol Total LDL Cholesterol HDL Cholesterol TSH 03/03/20 03/03/20 03/03/20 12:34 17:24 21:14 WBC RBC Hgb Hct MCV MCH MCHC RDW Plt Count MPV Absolute Neuts (auto) Neutrophils % Lymphocytes % Monocytes % Eosinophils % Basophils % Nucleated RBC % Sodium Potassium Chloride Carbon Dioxide Anion Gap BUN Creatinine Est GFR (CKD-EPI)AfAm Est GFR (CKD-EPI)NonAf POC Glucometer 236 266 Random Glucose Lactic Acid Calcium Phosphorus Magnesium Total Bilirubin AST ALT Alkaline Phosphatase Troponin I 0.11 H Total Protein Albumin Triglycerides Cholesterol Total LDL Cholesterol HDL Cholesterol TSH 03/03/20 21:20 WBC RBC Hgb Hct MCV MCH MCHC RDW Plt Count MPV Absolute Neuts (auto) Neutrophils % Lymphocytes % Monocytes % Eosinophils % Basophils % Nucleated RBC % Sodium Potassium Chloride Carbon Dioxide Anion Gap BUN Creatinine Est GFR (CKD-EPI)AfAm Est GFR (CKD-EPI)NonAf POC Glucometer Random Glucose Lactic Acid Calcium Phosphorus Magnesium Total Bilirubin AST ALT Alkaline Phosphatase Troponin I 0.10 H Total Protein Albumin Triglycerides Cholesterol Total LDL Cholesterol HDL Cholesterol TSH Plan: meal time insulin doses metformin 1000mg bid sitalglyptin 100mg day levemir 15 untis am levemir 10units hs
[2020-03-04] MEDS: SODIUM CHLORIDE 1,000 ML IV SCH (03:00)
[2020-03-04] MEDS: HEPARIN NA (PORCINE) 5,000 UNITS/ML 1ML VIAL SQ SCH ×3 (06:26→21:07)
[2020-03-04] MEDS: INSULIN SLIDING SCALE (NOVOLOG) 1 VIAL SQ SCH ×5 (07:06→21:10)
[2020-03-04] MEDS: INSULIN (LEVEMIR) 100 UNITS/ML UNITS SQ SCH ×2 (07:06→07:53)
--- NOTE | 2020-03-04 08:31 | PN ---
Progress Note (short form) - Note Progress Note: Cc Right flank pain x 2 weeks prior to coming hospital 64 Year old male history of htn, hld, dm, has been having right flank burning sensation, along with burning of both feet. Patient has been diagnosed with DM and has poorly controlled dm. Patient is on gabapnetin and not helping his flank symptoms. Patient denies any abck pain, or rash or any history of rash. He denies any other focal neurological symptoms. Ct abdomen done was inconclusive. He is being worked up for [place]. NEUROLOGICAL EXAMINATION Alert oriented x 3, neck is supple vss , afebrile eomi, pupils reactive no face asymmetry there is sensory dysthesia in two dermitome between t9-t11 Assessment/plan Intercostal neritis secondary to ? diaebtes vs post herpetic, ( no evidence of rash or history of rash) - gabapentin is not helping Stephanie-- diabetic control - capscacin cream is non formulary, - laboratory director to ok before lidocaine patch given cardiac condition - consider pain management for Intercoastal block, if pain persists Thanking you so much Isaiah Salas MD
[2020-03-04 09:01] LABS: HEMATOCRIT 39.1 % (35.4-49); HEMOGLOBIN 13.2 GM/dL (11.7-16.9); MCH 27.2 pg (25.7-33.7); MCHC 33.8 g/dl (32.0-35.9); MEAN CELL VOLUME 80.6 fl (80-96); MEAN PLT VOLUME 7.4 fl (7.5-11.1); PLATELET COUNT 255 K/MM3 (134-434); RBC 4.85 M/mm3 (4.00-5.60); RDW 14.9 % (11.9-15.9); WHITE BLOOD COUNT 5.3 K/mm3 (4.0-10.0)
[2020-03-04] MEDS: ATENOLOL 50 MG TABLET (FP) PO SCH (09:24)
[2020-03-04 09:26] LABS: ALBUMIN 3.6 g/dl (3.4-5.0); BILIRUBIN,TOTAL 0.7 mg/dL (0.2-1); BLOOD UREA NITROGEN 15.5 mg/dL (7-18); CALCIUM 9.3 mg/dL (8.5-10.1); CREATININE 1.2 mg/dL (0.55-1.3); MAGNESIUM 1.7 mg/dL (1.8-2.4); POTASSIUM 4.2 mmol/L (3.5-5.1); TOT PROT 6.7 g/dl (6.4-8.2)
[2020-03-04] MEDS: amLODIPine BESYLATE 10 MG TABLET (FP) PO SCH (09:26)
[2020-03-04] MEDS: LOSARTAN POTASSIUM 50 MG TABLET PO SCH (09:26)
[2020-03-04] MEDS ORDERED: FLU VACCINE (FLULAVAL) PF 60 MCG/0.5 ML SYRINGE 2020-2021 IM ONE (12:00)
[2020-03-04] MEDS ORDERED: PNEUMOCOCCAL 23 VACCINE 0.5 ML VIAL IM ONE (12:00)
--- NOTE | 2020-03-04 12:14 | PN ---
Progress Note, Physician History of Present Illness: Mr. Tineo is a 64 yr old white man with HTN, DM (diagnosed 2016), obesity, who presented to the ED for RUQ pain. Pain happened 1 month ago, but getting worse for the past 3 weeks. Today, he came into the ED to get evaluated due to the burning pain. Pain located on the RUQ near the ribcage. Describing it as a burning pain sensation, 8/10 in pain score, not worsening with movement or after food. Denies N/V/fever/chill/chest pain/gallstone hx/shingle vaccine/trauma/falling. Called because pt was noted to be in a wide-complex arrhythmia. Family hx; father had Mi in his 50s; in his 60s Mother: DM; in her 70s. Both parents smoked; pt was exposed to 2nd hand smoke growing up. Denies alcohol. 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 Denies leg swelling. - Current Medication List Current Medications: Active Medications Acetaminophen (Ofirmev Injection -) 1,000 mg IVPB Q6H PRN PRN Reason: PAIN LEVEL 6-10 Stop: 03/04/20 20:11 Last Admin: 03/03/20 20:40 Dose: 1,000 mg Documented by: Amlodipine Besylate (Norvasc -) 10 mg PO DAILY [facility] Last Admin: 03/04/20 09:26 Dose: 10 mg Documented by: Atenolol (Tenormin -) 75 mg PO BID [facility] Last Admin: 03/04/20 09:24 Dose: 75 mg Documented by: Heparin Sodium (Porcine) (Heparin -) 5,000 unit SQ TID [facility] Last Admin: 03/04/20 06:26 Dose: 5,000 unit Documented by: Insulin Aspart (Novolog Vial Sliding Scale -) 1 vial SQ ACHS [facility]; Protocol Last Admin: 03/04/20 11:44 Dose: 6 units Documented by: Insulin Detemir (Levemir Vial) 15 units SQ AM [facility] Last Admin: 03/04/20 07:53 Dose: 15 units Documented by: Insulin Detemir (Levemir Vial) 10 units SQ HS [facility] Losartan Potassium (Cozaar -) 75 mg PO DAILY [facility] Last Admin: 03/04/20 09:26 Dose: 75 mg Documented by: - Objective Vital Signs: Vital Signs Temperature 98.0 F 03/04/20 09:01 Pulse Rate 68 03/04/20 09:01 Respiratory Rate 18 03/04/20 09:01 Blood Pressure 159/89 03/04/20 09:01 O2 Sat by Pulse Oximetry (%) 100 03/04/20 09:01 Eyes: Yes: WNL, Conjunctiva Clear, EOM Intact HENT: Yes: WNL, Atraumatic, Normocephalic Neck: Yes: WNL, Supple, Trachea Midline Cardiovascular: Yes: WNL, Regular Rate and Rhythm Respiratory: Yes: WNL, Regular, CTA Bilaterally Gastrointestinal: Yes: WNL, Normal Bowel Sounds Genitourinary: Yes: WNL Musculoskeletal: Yes: WNL Extremities: Yes: WNL Edema: No Integumentary: Yes: WNL Neurological: Yes: WNL, Alert, Oriented ...Motor Strength: WNL Psychiatric: Yes: WNL Labs: CBC, BMP 03/04/20 08:37 03/04/20 08:37 INR, PTT INR 1.07 (0.83-1.09) 03/02/20 20:15 Problem List - Problems (1) Abdominal pain Code(s): R10.9 - UNSPECIFIED ABDOMINAL PAIN Qualifiers: Abdominal location: right upper quadrant Qualified Code(s): R10.11 - Right upper quadrant pain (2) Controlled diabetes mellitus with hyperglycemia Code(s): E11.65 - TYPE 2 DIABETES MELLITUS WITH HYPERGLYCEMIA (3) Elevated serum lactate dehydrogenase Code(s): R74.0 - NONSPEC ELEV OF LEVELS OF TRANSAMNS & LACTIC ACID DEHYDRGNSE (4) Elevated troponin Code(s): R79.89 - OTHER SPECIFIED ABNORMAL FINDINGS OF BLOOD CHEMISTRY Assessment/Plan NSVT mildly elevated TNi: multiple CAD risks; demand ischemic contributors, including arrhythmia, uncontrolled HTN, CHF. DM with high HGBA1c. HTN obesity family hx CAD exposure to 2nd hand cigarette smoke hypokalemia; hypomagnesemia. Hx coronary angiogram at [place] about 3 yrs ago. ECHO mildly reduced EF 45% Pl: On atenolol; increase dose, and modify other antihypertensive dosages as required for better BP control. Replete K and Mg; keep K 4.0-4.5, Mg 2.0-2.4, PO4 2.5-4.9. Statin, even if lipid panel is "normal". f/u prior cardiac workup; obtain coronary angiogram results (pt does not believe he had a stent placed). Will need MIBI stress test as inpatient. ASA 81 QD will change Atenolol to Toprol XL Nutrition consult would be of benefit.
[2020-03-04] MEDS: ASPIRIN COATED 81 MG TABLET.EC PO SCH (15:05)
--- NOTE | 2020-03-04 20:35 | PN ---
Physical Exam: SUBJECTIVE: Patient seen and examined at bedside. Still endorsing pain right side abdomen. OBJECTIVE: Vital Signs Period Temp Pulse Resp BP Sys/Lindo Pulse Ox Last 24 Hr 97.8 F-98.7 F 54-68 18-18 149-169/71-89 96-100 GENERAL: No acute distress HEAD: Normal with no signs of trauma. EYES: EOMI Sclera Clear NECK: Supple LUNGS: Clear b/l. No MRG S1S2 HEART: RRR No MRG S1S2 ABDOMEN: Soft, TTP right abdominal region. No Guarding/Rebound/Rigidity. EXTREMITIES: 2+ pulses, warm, well-perfused, no edema. NEUROLOGICAL: Cranial nerves II through XII grossly intact. PSYCH: Normal mood, normal affect. SKIN: Warm, dry, normal turgor, no rashes or lesions noted Laboratory Results - last 24 hr 03/03/20 03/03/20 03/03/20 02:03 21:14 21:20 WBC RBC Hgb Hct MCV MCH MCHC RDW Plt Count MPV Sodium Potassium Chloride Carbon Dioxide Anion Gap BUN Creatinine Est GFR (CKD-EPI)AfAm Est GFR (CKD-EPI)NonAf POC Glucometer 266 Random Glucose Calcium Phosphorus Magnesium Total Bilirubin AST ALT Alkaline Phosphatase Troponin I 0.10 H Total Protein Albumin COVID-19 (SHAMIKA) Not detected 03/04/20 03/04/20 03/04/20 05:43 08:37 08:37 WBC 5.3 RBC 4.85 Hgb 13.2 Hct 39.1 MCV 80.6 MCH 27.2 MCHC 33.8 RDW 14.9 Plt Count 255 MPV 7.4 L Sodium 136 Potassium 4.2 Chloride 98 Carbon Dioxide 33 H Anion Gap 5 L BUN 15.5 Creatinine 1.2 Est GFR (CKD-EPI)AfAm 74.14 Est GFR (CKD-EPI)NonAf 63.97 POC Glucometer 184 Random Glucose 278 H Calcium 9.3 Phosphorus 3.0 Magnesium 1.7 L Total Bilirubin 0.7 AST 24 ALT 35 Alkaline Phosphatase 83 Troponin I Total Protein 6.7 Albumin 3.6 COVID-19 (SHAMIKA) 03/04/20 03/04/20 11:40 17:07 WBC RBC Hgb Hct MCV MCH MCHC RDW Plt Count MPV Sodium Potassium Chloride Carbon Dioxide Anion Gap BUN Creatinine Est GFR (CKD-EPI)AfAm Est GFR (CKD-EPI)NonAf POC Glucometer 227 155 Random Glucose Calcium Phosphorus Magnesium Total Bilirubin AST ALT Alkaline Phosphatase Troponin I Total Protein Albumin COVID-19 ([facility]A) Active Medications Generic Name Dose Route Start Last Admin Trade Name Ce PRN Reason Stop Dose Admin Amlodipine Besylate 10 mg 03/04/20 08:17 03/04/20 09:26 Norvasc - PO 10 mg DAILY [facility] Administration Aspirin 81 mg 03/04/20 12:30 03/04/20 15:05 Ecotrin - PO 81 mg DAILY [facility] Administration Atorvastatin Calcium 40 mg 03/04/20 22:00 Lipitor - PO HS [facility] Heparin Sodium (Porcine) 5,000 unit 03/03/20 06:00 03/04/20 15:06 Heparin - SQ 5,000 unit TID [facility] Administration Insulin Aspart 1 vial 03/03/20 23:34 03/04/20 17:17 Novolog Vial Sliding Scale - SQ 5 units ACHS [facility] Administration Protocol Insulin Detemir 15 units 03/04/20 07:00 03/04/20 07:53 Levemir Vial SQ 15 units AM [facility] Administration Insulin Detemir 10 units 03/04/20 22:00 Levemir Vial SQ HS [facility] Losartan Potassium 75 mg 03/04/20 10:00 03/04/20 09:26 Cozaar - PO 75 mg DAILY [facility] Administration Metoprolol Succinate 100 mg 03/04/20 12:45 03/04/20 15:06 Toprol Xl - PO 100 mg DAILY [facility] Administration ASSESSMENT/PLAN: Patient is a 64 year old man with a PMH of HTN, Shingles in childhood, Thoracic herniated disc surgery and NIDDM who presents to the ER for RUQ abdominal pain. Found to have an JAKUB, Tropenemia, and latic acidosis. #RUQ abdominal pain unclear etiology -Patient states his pain has been present for weeks. Cannot attribute pain to any inciting factors. -Pain located right side, very painful to superficial touch. Herpes Zoster on differential (has never had shingles vaccine). Also ddx includes anterior cutaneous nerve entrapment. -Neuro on board. Recommending topical capsaicin cream. Will defer Lidocaine patch in light of possible CO. -CTAP performed upon admission. No acute pathology. Enlarged mesentreric lymph nodes, sacroiliitis. Ortho consult and MRI suggested. #Tropenemia likely 2/2 demand -No EKG changes. May be 2/2 uncontrolled HTN. Troponin 0.11. c/t trend. Echocardiogram---> Mixed Diastolic/Systolic HD. Poor LV compliance/ poor LV relaxation. Cardio recommending change Atenolol to Toprol XL -MIBI tomorrow. Patient NPO. #Diabetes Mellitus -A1C 10.7. -Started in Insulin while admitted. Counseled on health ramifications of uncontrolled diabetes including but not limited to stroke, heart disease, and lung disease. -Endo has been consulted. Recs appreciated #Acute Kidney Injury -Cr upon admission---> 1.5. Currently 1.2. C/t trend. May be 2/2 medication mismanagement. #HTN -Losartan 75 daily, Toprol, Hydralazine. #FEN No Fluids Monitor Electrolytes Sodium Controlled/Diabetic #DVT ppx: HepSQTID #Dispo: Tele Visit type - Emergency Visit Emergency Visit: Yes ED Registration Date: 03/02/20 Care time: The patient presented to the Emergency Department on the above date and was hospitalized for further evaluation of their emergent condition. - New Patient This patient is new to me today: No - Critical Care Critical Care patient: No - Discharge Referral Referred to [facility].C[facility] No ATTENDING PHYSICIAN STATEMENT I saw and evaluated the patient. I reviewed the resident's note and discussed the case with the resident. I agree with the resident's findings and plan as documented. SUBJECTIVE: OBJECTIVE: ASSESSMENT AND PLAN:
[2020-03-04] MEDS ORDERED: INSULIN (LEVEMIR) 100 UNITS/ML UNITS SQ SCH (22:00)
[2020-03-04] MEDS ORDERED: ATORVASTATIN CA 40 MG TABLET (FP) PO SCH (22:00)
[2020-03-05] MEDS: HEPARIN NA (PORCINE) 5,000 UNITS/ML 1ML VIAL SQ SCH ×2 (06:33→14:14)
[2020-03-05] MEDS: INSULIN (LEVEMIR) 100 UNITS/ML UNITS SQ SCH (06:34)
[2020-03-05] MEDS: INSULIN SLIDING SCALE (NOVOLOG) 1 VIAL SQ SCH ×3 (06:34→16:25)
[2020-03-05 06:56] LABS: HEMATOCRIT 38.6 % (35.4-49); HEMOGLOBIN 13.5 GM/dL (11.7-16.9); MCH 27.9 pg (25.7-33.7); MEAN CELL VOLUME 79.6 fl (80-96); MEAN PLT VOLUME 7.4 fl (7.5-11.1); PLATELET COUNT 246 K/MM3 (134-434); RBC 4.85 M/mm3 (4.00-5.60); RDW 14.5 % (11.9-15.9); WHITE BLOOD COUNT 8.8 K/mm3 (4.0-10.0)
[2020-03-05 07:33] LABS: POTASSIUM 3.7 mmol/L (3.5-5.1)
[2020-03-05 07:43] LABS: BLOOD UREA NITROGEN 19.3 mg/dL (7-18); CREATININE 1.1 mg/dL (0.55-1.3); MAGNESIUM 1.5 mg/dL (1.8-2.4); PHOSPHOROUS 3.4 mg/dL (2.5-4.9)
[2020-03-05] MEDS: amLODIPine BESYLATE 10 MG TABLET (FP) PO SCH ×2 (07:51→11:14)
[2020-03-05] MEDS: LOSARTAN POTASSIUM 50 MG TABLET PO SCH (07:51)
--- NOTE | 2020-03-05 08:01 | PN ---
Teaching Attending Note Name of Resident: Scott Garces ATTENDING PHYSICIAN STATEMENT I saw and evaluated the patient. I reviewed the resident's note and discussed the case with the resident. I agree with the resident's findings and plan as documented. Patient was seen and examined on 03/04 at bedside but I forgot to write a note. This note reflects my findings and plan as of 03/04/2020. SUBJECTIVE: Seen and examined at bedside. Trop downtrending. Pt reports still having abd pain but slightly improved from previous OBJECTIVE Last Vital Signs Temp Pulse Resp BP Pulse Ox 97.7 F 57 L 18 166/86 95 03/05/20 06:00 03/05/20 06:00 03/05/20 06:00 03/05/20 06:00 03/05/20 06:00 PE: Per resident note Labs/Imaging: reviewed ASSESSMENT/PLAN 61-year-old male with a history of hypertension, hyperlipidemia, type 2 diabetes presented with several weeks of burning right upper quadrant pain. Found to have JAKUB, elevated troponin, elevated lactic acid. #Right upper quadrant pain Appears to be neuropathic in quality. 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 on admission #JAKUB: Resolved Patient noted to be taking both lisinopril and losartan Discontinue lisinopril #Troponinemia and elevated lactic acid Other than elevated blood pressure no signs of acute distress -cardiology on board: appreciate recs -asa/statin -switch atenolol to metoprolol -Pending MIBI scan #Hypertensive urgency: improving -increase losartan to 100mg daily -switch to metoprolol -amlodipine added -if not controlled next step would be to add thiazide #uncontrolled DM with hyperglycemia -will start short and long acting insulin -on levemir 15 in AM and 10 HS -januvia/metformin -endocrine on board: appreciate recs #hypomagnesemia: replete
[2020-03-05] MEDS ORDERED: LOSARTAN POTASSIUM 50 MG TABLET PO SCH (08:03)
[2020-03-05] MEDS ORDERED: REGADENOSON 0.4 MG/5 ML PRE-FILLED SYRINGE IVPUSH ONE ×2 (11:34→11:45)
[2020-03-05 14:11] VITALS: BP 134/71; PULSE 61; TEMP 98.1
[2020-03-05] MEDS: ASPIRIN COATED 81 MG TABLET.EC PO SCH (14:13)
--- NOTE | 2020-03-05 14:27 | PN ---
Progress Note, Physician Chief Complaint: Pt A&OX3; anxious (wants formed signed regarding time off from work while hospitalized, and for explanation of right sided pain and medication for it). History of Present Illness: Mr. Tineo is a 64 yr old white man with HTN, DM (diagnosed 2016), obesity, who presented to the ED for RUQ pain. Pain happened 1 month ago, but getting worse for the past 3 weeks. Today, he came into the ED to get evaluated due to the burning pain. Pain located on the RUQ near the ribcage. Describing it as a burning pain sensation, 8/10 in pain score, not worsening with movement or after food. Denies N/V/fever/chill/chest pain/gallstone hx/shingle vaccine/trauma/falling. Called because pt was noted to be in a wide-complex arrhythmia. Family hx; father had Mi in his 50s; in his 60s Mother: DM; in her 70s. Both parents smoked; pt was exposed to 2nd hand smoke growing up. Denies alcohol. 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 Denies leg swelling. - Current Medication List Current Medications: Active Medications Amlodipine Besylate (Norvasc -) 10 mg PO DAILY [facility] Last Admin: 03/05/20 11:14 Dose: Not Given Documented by: Aspirin (Ecotrin -) 81 mg PO DAILY [facility] Last Admin: 03/05/20 14:13 Dose: 81 mg Documented by: Atorvastatin Calcium (Lipitor -) 40 mg PO HS [facility] Last Admin: 03/04/20 21:08 Dose: 40 mg Documented by: Heparin Sodium (Porcine) (Heparin -) 5,000 unit SQ TID [facility] Last Admin: 03/05/20 14:14 Dose: 5,000 unit Documented by: Insulin Aspart (Novolog Vial Sliding Scale -) 1 vial SQ ACHS [facility]; Protocol Last Admin: 03/05/20 11:14 Dose: Not Given Documented by: Insulin Detemir (Levemir Vial) 15 units SQ AM [facility] Last Admin: 03/05/20 06:34 Dose: Not Given Documented by: Insulin Detemir (Levemir Vial) 10 units SQ HS [facility] Last Admin: 03/04/20 21:10 Dose: Not Given Documented by: Losartan Potassium (Cozaar -) 100 mg PO DAILY [facility] Last Admin: 03/05/20 11:13 Dose: Not Given Documented by: Metoprolol Succinate (Toprol Xl -) 100 mg PO DAILY [facility] Last Admin: 03/05/20 14:14 Dose: 100 mg Documented by: Spironolactone (Aldactone -) 25 mg PO DAILY [facility] - Objective Vital Signs: Vital Signs Temperature 98.1 F 03/05/20 14:09 Pulse Rate 61 03/05/20 14:09 Respiratory Rate 18 03/05/20 06:00 Blood Pressure 134/71 03/05/20 14:09 O2 Sat by Pulse Oximetry (%) 95 03/05/20 06:00 Constitutional: Yes: Anxious Labs: CBC, BMP 03/05/20 06:31 03/05/20 06:31 INR, PTT INR 1.07 (0.83-1.09) 03/02/20 20:15 Assessment/Plan NSVT mildly elevated TNi: multiple CAD risks; demand ischemic contributors, including arrhythmia, uncontrolled HTN, CHF. systolic CHF DM with high HGBA1c. Right lower burning ribcage pain: ? due to diabetic neuropathy; ? "shingles without rash". HTN obesity family hx CAD exposure to 2nd hand cigarette smoke hypokalemia; hypomagnesemia. Hx coronary angiogram at [place] about [address]: Stress MIBI (subopitlmal HR reached on treadmill, as pt was on metoprolol; changed to Lexiscan): no ischemia; reduced LVEF (40%). From a cardiac standpoint, pt may be followed as outpatient. Add spironolactone (reduced LVEF; HTN); f/u BUN/Cr and electrolytes in the next 1-2 weeks. Replete magnesium; (Mg oxide) 800 iu now, send home on 400 iu daily, and f/u levels as outpatient. As discussed with Dr. Edwards, lidocaine patch will be tried for pain management.
[2020-03-05] MEDS ORDERED: LIDOCAINE 5% TOPICAL PATCH TP ONE (14:32)
--- NOTE | 2020-03-05 14:37 | PN ---
Progress Note (short form) - Note Progress Note: Cc Right flank pain x 2 weeks prior to coming hospital 64 Year old male history of htn, hld, dm, has been having right flank burning sensation, along with burning of both feet. Patient has been diagnosed with DM and has poorly controlled dm. Patient is on gabapnetin and not helping his flank symptoms. Patient denies any abck pain, or rash or any history of rash. He denies any other focal neurological symptoms. Ct abdomen done was inconclusive. - continue to have burning pain on right side of flank. NEUROLOGICAL EXAMINATION Alert oriented x 3, neck is supple vss , afebrile eomi, pupils reactive no face asymmetry there is sensory dysthesia in two dermitome between t9-t11 Assessment/plan Intercostal neritis secondary to ? diaebtes vs post herpetic, ( no evidence of rash or history of rash) - gabapentin is not helping Stephanie-- diabetic control - capscacin cream is non formulary, lidocaine patch locally already ordered by primary - - consider pain management for Intercoastal block, if pain persists Thanking you so much Isaiah Salas MD
[2020-03-05] MEDS ORDERED: SPIRONOLACTONE 25 MG TABLET PO SCH (14:45)
[2020-03-05] MEDS ORDERED: MAGNESIUM OXIDE 400 MG TABLET (FP) PO ONE (15:30)
--- NOTE | 2020-03-05 16:51 | DS ---
Physical Exam: SUBJECTIVE: Patient seen and examined at bedside. OBJECTIVE: Vital Signs Period Temp Pulse Resp BP Sys/Lindo Pulse Ox Last 24 Hr 97.7 F-98.7 F 53-62 18-18 134-172/71-96 95-96 PHYSICAL EXAM GENERAL: NAD AAOx3 HEAD: Normal with no signs of trauma. EYES: EOMI Sclera Clear NECK: Supple LUNGS: Clear b/l. No MRG S1S2 HEART: RRR No MRG S1S2 ABDOMEN: Soft, nondistended/tender to touch. EXTREMITIES: 2+ pulses, warm, well-perfused, no edema. NEUROLOGICAL: Cranial nerves II through XII grossly intact. PSYCH: Normal mood, normal affect. SKIN: Warm, dry. LABS Laboratory Results - last 24 hr 03/04/20 03/04/20 03/05/20 17:07 21:03 06:23 WBC RBC Hgb Hct MCV MCH MCHC RDW Plt Count MPV Sodium Potassium Chloride Carbon Dioxide Anion Gap BUN Creatinine Est GFR (CKD-EPI)AfAm Est GFR (CKD-EPI)NonAf POC Glucometer 155 190 239 Random Glucose Calcium Phosphorus Magnesium 03/05/20 03/05/20 03/05/20 06:31 06:31 16:16 WBC 8.8 RBC 4.85 Hgb 13.5 Hct 38.6 MCV 79.6 L MCH 27.9 MCHC 35.0 RDW 14.5 Plt Count 246 MPV 7.4 L Sodium 135 L Potassium 3.7 Chloride 99 Carbon Dioxide 27 Anion Gap 9 BUN 19.3 H Creatinine 1.1 Est GFR (CKD-EPI)AfAm 82.37 Est GFR (CKD-EPI)NonAf 71.07 POC Glucometer 247 Random Glucose 223 H Calcium 9.0 Phosphorus 3.4 Magnesium 1.5 L HOSPITAL COURSE: Date of Admission:03/02/20 Patient is a 64 year old man with a PMH of HTN, Shingles in childhood, Thoracic herniated disc surgery and NIDDM who presented to the ER due to RUQ abdominal pain. Found to have an JAKUB, Tropenemia, and lactic acidosis. CTAP performed upon admission revealed no acute pathology-please see report for details. Patient's troponin peaked to 0.11 with no EKG changes. Echocardiogram ---> Mixed Diastolic/Systolic HD. Poor LV compliance/ poor LV relaxation. Furthermore, BP was significantly elevated during admission (190s systolic). Patient's medications were reconciled and patient was maintained on Losartan, Toprol, Amlodipine and Hydralazine. Cardiology evaluated patient and ordered for patient to undergo a nuclear stress--> no ischemia; reduced LVEF (40%). Patient was placed on spironolactone in light of these findings. Creatinine was 1.5 on admission however downtrended to normal; JAKUB was believed to be a result of medication mismanagement (patient endorsed taking both MACARENA and ARB). Patient's A1C was elevated at 10.7. Patient was counseled on health ramifications of uncontrolled diabetes including but not limited to stroke, heart disease, and lung disease. Patient was discharged with insulin instructed to f/u with his PCP. Patient was also provided lidocaine patches for his right flank burning sensation. Date of Discharge: 03/05/20 Minutes to complete discharge: 35 Discharge Summary Problems reviewed: Yes Reason For Visit: ELEVATED TROPONIN LEVEL, ELEVATED SERUM LACTATE Current Active Problems Abdominal pain (Acute) Controlled diabetes mellitus with hyperglycemia (Acute) Elevated serum lactate dehydrogenase (Acute) Elevated troponin (Acute) Condition: Improved - Instructions Diet, Activity, Other Instructions: You presented to the hospital due to abdominal pain. You were found to have a minor heart attack as well as heart failure. You were evaluated by cardiology and your medications have been changed. Please take Metoprolol 100 Daily Please take Lisinopril 40 mg Daily Please take Spironolactone 25 mg DAILY Please Take Magnesium Oxide 400 mg Daily until you see your primary care doctor for a repeat blood test to follow your electrolyte levels. You were also noted to have uncontrolled diabetes. You were evaluated by an heating equipment repairer. It is recommended that you be placed on Insulin 15 Units in the am 10 Units at night Please take 1000 mg TWICE per day of the Metformin Please Take Sitagliptin 100 mg Daily Your Amlodipine has been increased to 10 mg Daily Please STOP taking Losartan. Please be sure to visit your primary care doctor in 1 week to have your blood drawn (BMP). This is to check your kidney and electrolyte levels. You have indicated that you would like to follow up with Dr Tolbert for your primary care. A referral has been provided for you in your discharge papers. You were also noted to have some cysts on your kidneys which were seen incidentally on imaging. Please follow up with your primary care doctor for this . For you abdominal pain, we have prescribed you lidocaine patches. Please use one patch per day as needed for up to 12 hours per day. Please DO NOT use this patch more than 12 hours per day. We have also provided you with a referral to see a pain management physician- Dr José Luis Romo. Please return to the emergency department immediately if you begin to experience worsening abdominal pain, chest pain, lightheadedness, nausea/vomiting, fevers, or any other abnormal symptoms . Referrals: Isaiah Salas MD [Staff Physician] - José Luis Romo DO [Staff Physician] - 1 Week Ankush Salguero MD [Staff Physician] - 1 Week Thong Nelson MD [Staff Physician] - 1 Week Vicky Tolbert MD [Staff Physician] - 1 Week Disposition: HOME - Home Medications Comprehensive Discharge Medication List: Ambulatory Orders Sitagliptin Phosphate [Januvia] 100 mg PO DAILY 03/02/20 Gabapentin 2 cap PO DAILY 03/03/20 Amlodipine Besylate [Norvasc -] 10 mg PO DAILY #30 tablet 03/05/20 Aspirin Coated [Ecotrin -] 81 mg PO DAILY #30 tablet.ec 03/05/20 Atorvastatin Ca [Lipitor] 40 mg PO HS #30 tablet 03/05/20 Insulin (Levemir) [Levemir Vial] 10 units SQ HS #1 vial 03/05/20 Insulin (Levemir) [Levemir Vial] 15 units SQ AM #1 vial 03/05/20 Lidocaine 5% Patch [Lidoderm -] 1 patch TP DAILY #7 patch 03/05/20 Lisinopril [Prinivil -] 40 mg PO DAILY #30 tablet 03/05/20 Magnesium Oxide [Magnesium] 400 mg PO DAILY #14 capsule 03/05/20 Metoprolol Succinate [Toprol XL -] 100 mg PO DAILY #30 tab.sr.24h 03/05/20 Spironolactone [Aldactone -] 25 mg PO DAILY #30 tablet 03/05/20 metFORMIN HCL [Metformin ER Gastric] 1,000 mg PO BID #60 tab.sr 03/05/20 This patient is new to me today: No Emergency Visit: Yes ED Registration Date: 03/02/20 Care time: The patient presented to the Emergency Department on the above date and was hospitalized for further evaluation of their emergent condition. Critical Care patient: No - Discharge Referral Referred to [facility] No ATTENDING PHYSICIAN STATEMENT I saw and evaluated the patient. I reviewed the resident's note and discussed the case with the resident. I agree with the resident's findings and plan as documented. SUBJECTIVE: OBJECTIVE: ASSESSMENT AND PLAN:
[2020-03-05] MEDS ORDERED: LIDOCAINE PATCH REMOVAL MC SCH (22:00)
== END 2020-03-05 18:00 | disposition home or self-care (01) | DRG 683 ==
LOC: JER 19:42 → JERBED 23:40 → J4W 03-03 03:51
PROVIDERS: ADMIT Internal Medicine; ATTEND Internal Medicine
DX: N17.9 Acute kidney failure, unspecified (principal); E87.2 Acidosis; I47.2 Ventricular tachycardia; I50.20 Unspecified systolic (congestive) heart failure; I24.8 Other forms of acute ischemic heart disease; I16.0 Hypertensive urgency; R10.11 Right upper quadrant pain; E66.9 Obesity, unspecified; Z68.30 Body mass index [BMI] 30.0-30.9, adult; I11.0 Hypertensive heart disease with heart failure; E86.0 Dehydration; I12.9 Hypertensive chronic kidney disease with stage 1 through stage 4 chronic kidney disease, or unspecified chronic kidney disease; E11.22 Type 2 diabetes mellitus with diabetic chronic kidney disease; N18.9 Chronic kidney disease, unspecified; E78.5 Hyperlipidemia, unspecified; N28.1 Cyst of kidney, acquired; E11.65 Type 2 diabetes mellitus with hyperglycemia; E83.42 Hypomagnesemia; M79.2 Neuralgia and neuritis, unspecified; E87.6 Hypokalemia; Z82.49 Family history of ischemic heart disease and other diseases of the circulatory system; R79.89 Other specified abnormal findings of blood chemistry
CPT/HCPCS: 36415; 71046-TC-FY; 74177-TC; 76705-TC; 78452-TC; 80048; 80053; 80061; 81003; 82550; 82553; 82803; 82962; 83036; 83605; 83690; 83721; 83735; 84100; 84443; 84484; 85025; 85027; 85610; 87077; 87086; 90732; 93005; 93010; 93017; 93306-TC; 99285-25; A9502; G0008; G0009; J0131; J1644; J2785; Q2036; U0003